=== PATIENT | female | born 1940 | race Caucasian/White ===

== ENCOUNTER 2019-12-27 13:43 | Outpatient (REF) | payer MEDICARE, OTHER, SELFPAY ==
--- NOTE | 2019-12-27 13:51 | MM_ITS ---
EXAMINATION: MM SCREENING DIGITAL MAMMOGRAPHY, BILATERAL CLINICAL INFORMATION: Screening. Asymptomatic. The lifetime risk of breast cancer based on the Tyrer-Cuzick Model is 3%. COMPARISON: Mammography: 12/24/2018, 02/25/2016 TECHNIQUE: Digital mammography is performed in craniocaudal and mediolateral oblique views along with computer-aided detection (CAD). FINDINGS: The breasts are heterogeneously dense, which may obscure small masses (ACR BI-RADS breast composition Category c). There are no significant masses, abnormal calcifications, or other abnormalities. There are scattered bilateral punctate round and some scattered coarse calcifications. The axilla and skin contours are unremarkable. No significant changes. IMPRESSION: No mammographic evidence of malignancy. ASSESSMENT: BI-RADS 1: Negative RECOMMENDATION: Routine annual mammography screening. This patient's information was entered into a reminder system with a target due date for their next mammogram.
== END 2019-12-27 13:44 | disposition home or self-care (01) ==
LOC: HO.MAMMO 13:43
PROVIDERS: PCP Internal Medicine; Visit Provider Internal Medicine
DX: Z12.31 Encounter for screening mammogram for malignant neoplasm of breast (principal)
CPT/HCPCS: 77067

== ENCOUNTER 2020-02-21 18:25 | Inpatient (IN) | payer MEDICARE, OTHER, SELFPAY ==
--- NOTE | 2020-02-21 18:31 | XR_ITS ---
EXAMINATION: XR CHEST CLINICAL INFORMATION: Weakness. COMPARISON: 05/03/2019. TECHNIQUE: Frontal view of the chest was obtained. FINDINGS: Mild kyphotic positioning is suboptimal. The lungs are clear. The heart and mediastinal structures are unremarkable. XR/XR chest 1V IMPRESSION: No acute cardiopulmonary process.
--- NOTE | 2020-02-21 18:31 | ECG_ITS ---
Test Reason : STROKE Blood Pressure : / mmHG Vent. Rate : 066 BPM Atrial Rate : 066 BPM P-R Int : 128 ms QRS Dur : 094 ms QT Int : 430 ms P-R-T Axes : 048 -39 042 degrees QTc Int : 450 ms Normal sinus rhythm Left axis deviation Incomplete right bundle branch block Nonspecific T wave abnormality Abnormal ECG When compared to the previous EKG of No significant changes seen Referred By: Venkat Cook Electronically Signed By:RACHNA GILL MD
--- NOTE | 2020-02-21 18:31 | CT_ITS ---
EXAMINATION: CT HEAD WITHOUT CONTRAST CLINICAL INFORMATION: Stroke. Dementia. COMPARISON: Brain MRI from 05/04/2019. TECHNIQUE: Contiguous axial imaging was performed from the skull base to vertex without intravenous administration of contrast. DLP: 560 mGy-cm FINDINGS: Exam is moderately motion degraded. Within this limitation, there is no evidence of acute intracranial hemorrhage or edematous territorial infarction. Confluent hypoattenuation in the periventricular, deep white matter, and brainstem. Chronic lacunar infarcts of the anterior limb of the right internal capsule. No new loss of trujillo-white matter differentiation. Proportional prominence of the ventricles and sulcal spaces. No evidence for obstructive hydrocephalus. No abnormal mass effect or midline shift. No extra-axial fluid collections. No acute soft tissue or osseous abnormalities. The mastoid air cells and paranasal sinuses are clear. CT/CT head for stroke IMPRESSION: Moderately motion degraded exam. Within this limitation, there is no evidence of acute intracranial hemorrhage or edematous territorial infarction. Extensive underlying microangiopathy. Mild to moderate generalized cerebral volume loss. This critical result was discussed with DENA Lindsey at 19:04 on 02/21/2020 and it was ascertained that the content and urgency of the report was understood at the time of direct communication.
--- NOTE | 2020-02-21 18:41 | PC.NURSE ---
DR SIMON CALLED @ [facility] FERNANDES REQUEST @ 18:41
--- NOTE | 2020-02-21 18:46 | PC.NURSE ---
DR SIMON RETURNS CALL @ THIS TIME 18:46
--- NOTE | 2020-02-21 18:50 | MR_ITS ---
EXAMINATION: MR BRAIN WITHOUT CONTRAST CLINICAL INFORMATION: Right-sided facial droop. COMPARISON: CT/CTA head from 02/21/2020. Brain MRI from 05/04/2019. TECHNIQUE: MRI of the brain was obtained using routine sequences without contrast. FINDINGS: No focal restricted diffusion is demonstrated to suggest acute or subacute cerebral ischemia. No evidence of acute or chronic hemorrhagic products on heme-sensitive imaging. Scattered periventricular, deep white matter, and brainstem T2 FLAIR hyperintensity consistent with moderate underlying microangiopathy. Chronic lacunar infarcts of the anterior limb of the right internal capsule and left yuriy. Proportional prominence of the ventricles and sulcal spaces without evidence of obstructive hydrocephalus. No abnormal mass effect. No midline shift. Normal appearance of the pituitary gland. Normal positioning of the cerebellar tonsils. Normal arterial and venous vascular flow voids are present. Normal, homogeneous marrow signal. Mild mucosal thickening of the paranasal sinuses. Leftward nasal septal deviation. No signal abnormalities within the mastoids. MR/MR head/brain wo con IMPRESSION: 1. No acute intracranial abnormalities. 2. Moderate underlying microangiopathy and generalized cerebral volume loss. Chronic lacunar infarcts of the anterior limb of the right internal capsule and left yuriy.
[2020-02-21 18:57] VITALS: BP 115/86; BP 127/85; PULSE 69; PULSE 83; RESP 18; TEMP 36.8; O2SAT 96; O2SAT 98; BMI 20.6
[2020-02-21 19:31] LABS: Basophils Percent Auto 0.7 % (0-2); Eosinophils Absolute Auto 0.1 X10*3/uL (0.0-0.4); Eosinophils Percent Auto 2.1 % (0-4); Hematocrit 41.9 % (37-47); Hemoglobin 14.1 g/dl (12.0-16.0); Imm Gran Abs Auto 0.01 X10*3/uL (0.00-0.03); Imm Gran Pct Auto 0.2 % (0.0-0.4); Lymphocytes Absolute Auto 1.3 X10*3/uL (1.2-4.9); Lymphocytes Percent Auto 23.8 % (20-40); MANUAL DIFF FLAG NO; Mean Corpuscular HGB Conc 33.7 g/dl (31.0-35.0); Mean Corpuscular Hemoglobin 32.5 pg (27.0-33.0); Mean Corpuscular Volume 96.5 fL (80-98); Mean Platelet Volume 9.6 fL (9.4-12.3); Monocytes Absolute Auto 0.5 X10*3/uL (0.1-1.2); Monocytes Percent Auto 9.6 % (2-11); Neutrophils Absolute Auto 3.6 X10*3/uL (2.0-8.3); Neutrophils Percent Auto 63.6 % (45-73); Platelet Count 295 X10*3/uL (160-400); Red Blood Count 4.34 X10*6/uL (4.20-5.50); Red Cell Distribution Width 11.7 % (11.0-16.0); White Blood Count 5.6 X10*3/uL (4.8-10.8)
--- NOTE | 2020-02-21 19:33 | ED.NEUROSD ---
HPI - Neuro Symptoms/Deficit General Chief Complaint: Stroke Stated Complaint: STROKE ALERT Time Seen by Provider: 02/21/20 18:33 Source: patient, family and EMS Mode of arrival: EMS Limitations: altered mental status History of Present Illness HPI Narrative: 79yoF c PMHx of CVA, atrial fibrillation on Eliquis although noncompliant for the past month last CVA , HTN, HLD presenting via EMS with reports of possible stroke. Per Grand-daughter Mya at 5:30PM patient was fine then at 5:50PM when she called her for dinner she stood up from the chair and fell to the ground brushed her head against the coffee table, not a hard hit, per granddaughter then was complaining of pain to buttocks/hip/ankle and foot and the granddaughter noticed she was pale and clammy was unable to get her up from the floor alone. Told the patient she would be back to get help from her family member's next door then when she arrived she was layying on the floor began to become very confused and tense up then her b/l arms and legs started to shake and they noticed she was more confused than normal and had a worsening Right sided facial droop. Patient has a Health Care Proxy Named Maryanne Yap. Pt is DNR/DNI. On arrival patient is starring in a blank stare not speaking or following any commands. She is going directly yo CT scan at this time for labs and CT scan of brain. Neuro will be consulted. Related Data Home Medications Medication Instructions Recorded Confirmed apixaban [Eliquis] 5 mg PO BID 02/21/20 02/21/20 atorvastatin 40 mg PO DAILY 02/21/20 02/21/20 fluticasone propionate [Flonase 2 spray INTRANASAL DAILY 02/21/20 02/21/20 Allergy Relief] metoprolol succinate 25 mg PO DAILY 02/21/20 02/21/20 Allergies Allergy/AdvReac Type Severity Reaction Status Date / Time bee pollen [Bee Stings] Allergy Intermediate HIVES Verified 02/21/20 19:33 atorvastatin [Lipitor] Allergy Unknown Hives Verified 02/21/20 19:33 bee stings Allergy Unknown Hives Uncoded 02/21/20 19:33 Review of Systems Review of Systems: Yes Unobtainable due to mental status PMFSH Social History Social History Alcohol intake: unknown Smoking Status: Unknown if ever smoked Use of substances other than those prescribed or required for medical reasons: No Advance Directives: No Advance Directives Information Provided: Yes Physical Exam Vital Signs: Vital Signs: Last Vital Signs Temp 98.2 F 02/21/20 20:00 Pulse 95 02/21/20 22:00 Resp 18 02/21/20 22:00 BP 141/98 H 02/21/20 22:00 Pulse Ox 98 02/21/20 22:00 Body Mass Index 20.6 Vital signs have been reviewed as normal and appeared to be correct. Blood pressure normal. Heart rate normal. Respiration rate normal. Temperature normal. Oxygen saturation normal. Appearance: Alert, Confused. No acute distress. Head: Normal external exam. Normocephalic. Atraumatic. Able to rotate head bilaterally. Eyes: PERRLA. EOMI. No nystagmus noted. Conjunctiva and sclera normal. Eyelids normal. Corneal reflex normal. ENT: EAC normal. TM's Normal. Hearing normal. Pharynx normal. Uvula midline. tongue midline. Moist mucous membranes. No trismus noted. No drooling noted. Neck: Normal inspection. Neck supple. FROM. No adenopathy. No meningeal signs. CVS: Normal heart rate and rhythm. Heart sound normal. No murmurs noted. Pulses normal throughout. Respiratory: No respiratory distress. Painless inspiration. Breath sounds normal. No wheezes/rales/rhonchi noted. Chest nontender. No accessory muscle usage noted or decreased air movement noted. Abdomen: Soft and nontender. Bowel sounds normal in all 4 quadrants. No distention noted. No organomegaly noted. No visible injury noted. Back: Full range of motion noted. Skin: Skin warm and dry. Normal skin color. Normal skin turgor. No rashes/lesions/lacerations noted. Extremities: No lower extremity edema. Extremities exhibit normal range of motion. Extremities nontender. Able to shrug shoulders bilaterally and keep up against resistance. Neuro: Confused. Patient is staring around not speaking or following any commands. Noted to have Right sided facial droop. When I raised her arms over her head she slowly lowers them. No motor deficit. No sensory deficit. Reflexes normal. Moving all extremities. No focal motor deficits. Cranial nerves II-XI intact bilaterally. No tremor noted. No rigidity noted. Course Course Course Narrative: 18:33pm - 79yoF c PMHx of CVA, atrial fibrillation on Eliquis although noncompliant for the past month last CVA , HTN, HLD presenting via EMS with reports of possible stroke last known well time 5:30PM Noncompliant for her Eliquis for the past month witnessed by her granddaughter. - On arrival pt is staring around with a right sided facial droop although appears to be moving her extremities. No focal neuro deficitis. Does not respond to questions or commands. Vitals are WNL. - Patient will go straight to CT scan of brain and labs/ekg STROKE protocol. NIH SS score 11. Consulted with Dr. Ramon at this time to evaluate for possible indication for tPA Although this could possibly be a seizure therefore will consult and possibly obtain a stat MRI then re-evaluate. Reevaluation(s) Reevaluation #1: - Patient's CT scan started to speak and continue to move all extremities her facial droop to the right side improved. Was able to have CT scan no acute or intracranial processes noted. Therefore due to unknown if this was a possible seizure versus the CVA will obtain a MRI stat we evaluate for possible tPA at that point. NIHSS score at this time 2 only with Right sided facial droop and confused at this time. Time: 19:00 Reevaluation #2: labs within normal limits. MRI negative for any acute intracranial abnormalities only revealed chronic changes. Therefore patient most likely seizure. Will plan to admit at this time. Time: 20:54 Procedures Orthopedic Splinting/Casting Injury #1: Side: right Lower Extremity Injury Location: ankle Lower Extremity Immobilizer: posterior splint MDM - Neuro Symptoms/Deficit Medical Records Attestation: I reviewed the patient's medical records. Lab Data Attestation: I reviewed the patient's lab results. Result diagrams: 02/21/20 19:25 02/21/20 19:25 Labs: Lab Results 02/21/20 02/21/20 02/21/20 Range/Units 19:25 19: 19:26 WBC 5.6 (4.8-10.8) X10*3/uL RBC 4.34 (4.20-5.50) X10*6/uL Hgb 14.1 (12.0-16.0) g/dl Hct 41.9 (37-47) % MCV 96.5 (80-98) fL MCH 32.5 (27.0-33.0) pg MCHC 33.7 (31.0-35.0) g/dl RDW 11.7 (11.0-16.0) % Plt Count 295 (160-400) X10*3/uL MPV 9.6 (9.4-12.3) fL Immature Gran % (Auto) 0.2 (0.0-0.4) % Neut % (Auto) 63.6 (45-73) % Lymph % (Auto) 23.8 (20-40) % [place] % (Auto) 9.6 (2-11) % Eos % (Auto) 2.1 (0-4) % Baso % (Auto) 0.7 (0-2) % Lymph # (Auto) 1.3 (1.2-4.9) X10*3/uL [place] # (Auto) 0.5 (0.1-1.2) X10*3/uL Eos # (Auto) 0.1 (0.0-0.4) X10*3/uL Baso # (Auto) 0.0 (0.0-0.2) X10*3/uL Abs Immat Gran (auto) 0.01 (0.00-0.03) X10*3/uL Absolute Neuts (auto) 3.6 (2.0-8.3) X10*3/uL Absolute Nucleated RBC 0.000 (0.0-0.012) X10*3/uL Nucleated RBC % (auto) 0.0 (0.0-0.2) /100WBC PT 11.8 (10.8-13.0) SEC INR 1.0 (0.9-1.1) APTT 29.4 (24.1-38.0) SEC Sodium 136 (135-145) mmol/L Potassium 3.7 (3.3-5.1) mmol/l Chloride 100 (96-108) mmol/L Carbon Dioxide 26 (22-29) mmol/L Anion Gap 14 (12-20) BUN 9 (9-16) mg/dL Creatinine 0.75 (0.5-1.4) mg/dL Estim Creat Clear Calc 57.4 Estimated GFR > 60 Random Glucose 111 (60-115) mg/dL Calcium 9.3 (8.4-10.2) mg/dL Magnesium 2.2 (1.6-2.6) mg/dL Total Bilirubin 0.8 (0.0-1.0) mg/dL Direct Bilirubin 0.3 (0.0-0.5) mg/dL AST 24 (5-31) U/L ALT 25 (0-31) U/L Alkaline Phosphatase 78 (39-117) U/L Total Creatine Kinase 20 L (26-140) U/L Troponin I High Sens (<3.5-17.0) ng/L Total Protein 6.6 (6.5-8.0) g/dL Albumin 4.1 (3.5-5.0) g/dL 02/21/20 Range/Units 19:26 WBC (4.8-10.8) X10*3/uL RBC (4.20-5.50) X10*6/uL Hgb (12.0-16.0) g/dl Hct (37-47) % MCV (80-98) fL MCH (27.0-33.0) pg MCHC (31.0-35.0) g/dl RDW (11.0-16.0) % Plt Count (160-400) X10*3/uL MPV (9.4-12.3) fL Immature Gran % (Auto) (0.0-0.4) % Neut % (Auto) (45-73) % Lymph % (Auto) (20-40) % [place] % (Auto) (2-11) % Eos % (Auto) (0-4) % Baso % (Auto) (0-2) % Lymph # (Auto) (1.2-4.9) X10*3/uL [place] # (Auto) (0.1-1.2) X10*3/uL Eos # (Auto) (0.0-0.4) X10*3/uL Baso # (Auto) (0.0-0.2) X10*3/uL Abs Immat Gran (auto) (0.00-0.03) X10*3/uL Absolute Neuts (auto) (2.0-8.3) X10*3/uL Absolute Nucleated RBC (0.0-0.012) X10*3/uL Nucleated RBC % (auto) (0.0-0.2) /100WBC PT (10.8-13.0) SEC INR (0.9-1.1) APTT (24.1-38.0) SEC Sodium (135-145) mmol/L Potassium (3.3-5.1) mmol/l Chloride (96-108) mmol/L Carbon Dioxide (22-29) mmol/L Anion Gap (12-20) BUN (9-16) mg/dL Creatinine (0.5-1.4) mg/dL Estim Creat Clear Calc Estimated GFR Random Glucose (60-115) mg/dL Calcium (8.4-10.2) mg/dL Magnesium (1.6-2.6) mg/dL Total Bilirubin (0.0-1.0) mg/dL Direct Bilirubin (0.0-0.5) mg/dL AST (5-31) U/L ALT (0-31) U/L Alkaline Phosphatase (39-117) U/L Total Creatine Kinase (26-140) U/L Troponin I High Sens < 3.5 (<3.5-17.0) ng/L Total Protein (6.5-8.0) g/dL Albumin (3.5-5.0) g/dL Imaging Data MRI of brain without contrast: Attestation: I personally reviewed and interpreted this imaging study as follows: Radiologist's impression: IMPRESSION: 1. No acute intracranial abnormalities. 2. Moderate underlying microangiopathy and generalized cerebral volume loss. Chronic lacunar infarcts of the anterior limb of the right internal capsule and left yuriy. ct scan of brain: Attestation: I personally reviewed and interpreted this imaging study as follows: Radiologist's impression: IMPRESSION: Moderately motion degraded exam. Within this limitation, there is no evidence of acute intracranial hemorrhage or edematous territorial infarction. Extensive underlying microangiopathy. Mild to moderate generalized cerebral volume loss. This critical result was discussed with DENA Lindsey at 19:04 on 02/21/2020 and it was ascertained that the content and urgency of the report was understood at the time of direct communication. Chest x-ray: Attestation: I personally reviewed and interpreted this imaging study as follows: Radiologist's impression: IMPRESSION: No acute cardiopulmonary process. right ankle/ foot x-ray: Attestation: I personally reviewed and interpreted this imaging study as follows: Radiologist's impression: IMPRESSION: 1. Acute, nondisplaced transverse fracture of the lateral malleolus with adjacent moderate soft tissue swelling. 2. Probable degenerative calcification adjacent to the medial malleolus. ECG Data Attestation: I personally reviewed and interpreted this ECG as follows: ECG interpretation date: 02/21/20 ECG interpretation time: 19:05 Interpretation: Normal sinus rhythm with left axis deviation with incomplete right bundle branch block and nonspecific T-wave abnormalities. No acute ischemic changes noted. Similar compared to prior 05/03/2019. NIH Stroke Scale Internal: Initial- Upon Arrival Time: 18:33 Level of Consciousness: Alert Level of Consciousness Questions: Answers neither question correctly Level of Consciousness Commands: Performs neither task correctly Best Gaze: Normal Visual: No visual loss Facial Palsy: Partial paralysis Motor Arm (Right): No drift Motor Arm (Left): No drift Motor Leg (Right): No drift Motor Leg (Left): No drift Limb Ataxia: Absent Sensory: Normal Best Language: Mute, global aphasia Dysarthia: Severe dysarthria (patient just staring not responding to questions ) Extinction and Inattention: No abnormality Score: 11 Critical Care Time Critical Care Time Critical Care Time: Yes Total Critical Care Time: 60 Attestation: I personally attest to this time spent taking care of the patient Discharge Plan Discharge Clinical Impression: Seizure, Fall, Ankle fracture, lateral malleolus, closed Patient Disposition: Admitted As Inpatient
[2020-02-21] MEDS: LORazepam 2 MG/ML VIAL 1 MG IVPUSH (19:34)
[2020-02-21 19:39] LABS: Prothrombin Time 11.8 SEC (10.8-13.0)
[2020-02-21 19:42] LABS: Partial Thromboplastin Time 29.4 SEC (24.1-38.0)
[2020-02-21 19:45] LABS: Stroke Lab Use COMPLETE
[2020-02-21 19:51] LABS: Alanine Aminotransferase 25 U/L (0-31); Albumin Level 4.1 g/dL (3.5-5.0); Alkaline Phosphatase 78 U/L (39-117); Anion Gap 14 (12-20); Aspartate Amino Transferase 24 U/L (5-31); Bilirubin Direct 0.3 mg/dL (0.0-0.5); Bilirubin Total 0.8 mg/dL (0.0-1.0); Blood Urea Nitrogen 9 mg/dL (9-16); Calcium 9.3 mg/dL (8.4-10.2); Carbon Dioxide 26 mmol/L (22-29); Chloride 100 mmol/L (96-108); Creatinine Clr Calc Pharmacy 57.4; Estimated Glomerular Filt Rate > 60; Glucose Random 111 mg/dL (60-115); Magnesium 2.2 mg/dL (1.6-2.6); Potassium 3.7 mmol/l (3.3-5.1); Sodium 136 mmol/L (135-145); Total Protein 6.6 g/dL (6.5-8.0)
[2020-02-21 19:57] LABS: Troponin-I High Sensitivity < 3.5 ng/L (<3.5-17.0)
[2020-02-21 20:00] VITALS: BP 149/79; PULSE 75; RESP 11; TEMP 36.8; O2SAT 98
[2020-02-21 22:00] VITALS: BP 141/98; PULSE 95; RESP 18; O2SAT 98
--- NOTE | 2020-02-21 22:39 | XR_ITS ---
EXAMINATION: XR ANKLE, RIGHT CLINICAL INFORMATION: Right ankle pain and swelling. COMPARISON: None TECHNIQUE: AP, lateral, and mortise views of the right ankle. FINDINGS: Moderate asymmetric swelling is seen laterally. A nondisplaced transverse fracture of the lateral malleolus is seen. A small corticated elongated density seen along the inferomedial aspect of the medial malleolus without adjacent soft tissue swelling. XR/XR ankle RT min 3V IMPRESSION: 1. Acute, nondisplaced transverse fracture of the lateral malleolus with adjacent moderate soft tissue swelling. 2. Probable degenerative calcification adjacent to the medial malleolus.
--- NOTE | 2020-02-21 22:39 | XR_ITS ---
EXAMINATION: XR FOOT, RIGHT CLINICAL INFORMATION: Right foot pain status post fall. COMPARISON: None TECHNIQUE: AP, lateral, and oblique views of the right foot. FINDINGS: There is a hallux valgus deformity. No acute fracture or dislocation is seen. The joint spaces are unremarkable. The soft tissues are unremarkable. XR/XR foot RT min 3V IMPRESSION: Hallux valgus deformity without acute right foot abnormality.
--- NOTE | 2020-02-21 23:08 | P.HPHOSP_ITS ---
History of Present Illness Date of Service: 02/21/20 Chief Complaint: suspected seizure 79 y/o female with PMHx of HTN, HLP, Afib and stroke who presented from home after fall due to suspected seizure. Per history provided by patient, she reported that today around 3 pm while walking believes she tripped and fell on the floor but denies loosing conciusness in the act or hitting her head. Per ED, reports that family member stated that patient after fall started shaking and brought the patient to the ED for a concern of a possible stroke given her previous hx. It is unclear the circumstances of the event at present but it is noted that patient has underlying dementia, is able to answer questions and fol low commands but unable to specify her age at present. In 2018 patient had a suspected episode of stroke and was evaluated by neuro. On that time planned was to start patient on lamotrigine but was never done so. On april this year patient had a left ischemic pontine stroke due to noncompliance with her eliquis. On presentation to the ED patient was noted to have a NIH scale of 0, no evidence of any motor or sensory deficit. BP stable, no evidence of fever. Blood work unremarkable at present. Decision for admission given. Patient seen and examined at the bedside, laying down in bed in no acute distress. ROS as above otherwise negative. Physical exam unremarkable. PMHX: HTN, HLP, Afib on eliquis, Stroke PSx: unknown Toxic habits: No hx of alcohol abuse, smoking or IVDA Review of Systems Review of Systems: Yes Other (fall) Neurologic: Reports seizure-like activity PMFSH Functional capacity: independent ambulation Social History Alcohol intake: unknown Smoking Status: Unknown if ever smoked Use of substances other than those prescribed or required for medical reasons: No Advance Directives: No Advance Directives Information Provided: Yes Meds Allergies Allergy/AdvReac Type Severity Reaction Status Date / Time bee pollen [Bee Stings] Allergy Intermediate HIVES Verified 02/21/20 19:33 atorvastatin [Lipitor] Allergy Unknown Hives Verified 02/21/20 19:33 bee stings Allergy Unknown Hives Uncoded 02/21/20 19:33 Home Medications Medication Instructions Recorded Confirmed Type apixaban [Eliquis] 5 mg PO BID 02/21/20 02/21/20 History atorvastatin 40 mg PO DAILY 02/21/20 02/21/20 History fluticasone propionate [Flonase 2 spray INTRANASAL DAILY 02/21/20 02/21/20 History Allergy Relief] metoprolol succinate 25 mg PO DAILY 02/21/20 02/21/20 History Physical Exam Vital Signs and Narrative: Vital Signs: Last Vital Signs Temp 98.2 F 02/21/20 20:00 Pulse 95 02/21/20 22:00 Resp 18 02/21/20 22:00 BP 141/98 H 02/21/20 22:00 Pulse Ox 98 02/21/20 22:00 Body Mass Index 20.6 Const: General: cooperative, comfortable and no acute distress Orientation/consciousness: oriented to person and oriented to place HENMT: Head: Yes normal to inspection Eyes: General: appearance normal, both eyes and all related structures Neck: Yes normal visual inspection Chest: Chest palpation & inspection: normal inspection of the chest Resp: Effort & Inspection: normal respiratory effort Auscultation: clear to auscultation bilaterally Cardio: Jugular venous distension: no JVD Rate: regular rate Rhythm: regular rhythm Heart sounds: S1 normal heart sound present and S2 normal heart sound present GI: Inspection: Yes normal to inspection Skin: General skin exam: no rashes or lesions noted Neuro: General: oriented to person and oriented to place Extrem: General: Yes normal to inspection Results Labs CBC and Chem 7: 02/21/20 19:25 02/21/20 19:25 Labs: Laboratory Results - last 24 hr 02/21/20 02/21/20 02/21/20 19:25 19:25 19:26 MCV 96.5 MCH 32.5 MCHC 33.7 RDW 11.7 Plt Count 295 MPV 9.6 Immature Gran % (Auto) 0.2 Neut % (Auto) 63.6 Lymph % (Auto) 23.8 [place] % (Auto) 9.6 Eos % (Auto) 2.1 Baso % (Auto) 0.7 Lymph # (Auto) 1.3 [place] # (Auto) 0.5 Eos # (Auto) 0.1 Baso # (Auto) 0.0 Abs Immat Gran (auto) 0.01 Absolute Neuts (auto) 3.6 Absolute Nucleated RBC 0.000 Nucleated RBC % (auto) 0.0 PT 11.8 INR 1.0 APTT 29.4 Anion Gap 14 Estim Creat Clear Calc 57.4 Estimated GFR > 60 Random Glucose 111 Calcium 9.3 Magnesium 2.2 Total Bilirubin 0.8 Direct Bilirubin 0.3 AST 24 ALT 25 Alkaline Phosphatase 78 Total Creatine Kinase 20 L Troponin I High Sens Total Protein 6.6 Albumin 4.1 02/21/20 19:26 MCV MCH MCHC RDW Plt Count MPV Immature Gran % (Auto) Neut % (Auto) Lymph % (Auto) [place] % (Auto) Eos % (Auto) Baso % (Auto) Lymph # (Auto) [place] # (Auto) Eos # (Auto) Baso # (Auto) Abs Immat Gran (auto) Absolute Neuts (auto) Absolute Nucleated RBC Nucleated RBC % (auto) PT INR APTT Anion Gap Estim Creat Clear Calc Estimated GFR Random Glucose Calcium Magnesium Total Bilirubin Direct Bilirubin AST ALT Alkaline Phosphatase Total Creatine Kinase Troponin I High Sens < 3.5 Total Protein Albumin Imaging Radiologist's Impressions: Impressions Chest X-Ray 02/21/20 18:31 IMPRESSION: No acute cardiopulmonary process. Head CT 02/21/20 18:31 IMPRESSION: Moderately motion degraded exam. Within this limitation, there is no evidence of acute intracranial hemorrhage or edematous territorial infarction. Extensive underlying microangiopathy. Mild to moderate generalized cerebral volume loss. This critical result was discussed with DENA Lindsey at 19:04 on 02/21/2020 and it was ascertained that the content and urgency of the report was understood at the time of direct communication. Brain MRI 02/21/20 18:50 IMPRESSION: 1. No acute intracranial abnormalities. 2. Moderate underlying microangiopathy and generalized cerebral volume loss. Chronic lacunar infarcts of the anterior limb of the right internal capsule and left yuriy. Ankle X-Ray 02/21/20 22:39 IMPRESSION: 1. Acute, nondisplaced transverse fracture of the lateral malleolus with adjacent moderate soft tissue swelling. 2. Probable degenerative calcification adjacent to the medial malleolus. Foot X-Ray 02/21/20 22:39 IMPRESSION: Hallux valgus deformity without acute right foot abnormality. Assessment and Plan (1) Fall: Status: Acute event unclear. No evidence of any intracranial pathology on CT Per family a seizure is suspected as the cause of the fall (2) Seizure: Status: Acute columnist EEG [facility] Neurochecks Neurology consult in the am for evaluation (3) Hypertension: Status: Acute continue with home BP meds (4) Hyperlipidemia: Status: Acute continue with statin home dise (5) Atrial fibrillation: Status: Acute continue with eliquis home dose
[2020-02-21 23:48] VITALS: BP 162/109; PULSE 89; RESP 17; TEMP 36.7; O2SAT 98
[2020-02-21 23:59] LABS: Glucose, Whole Blood 105 mg/dL (60-115)
[2020-02-22] VITALS (8 sets, daily range): BP systolic 134–164; BP diastolic 68–92; PULSE 79–133; RESP 12–18; TEMP 36.2–37.2; O2SAT 94–98
--- NOTE | 2020-02-22 00:03 | EEG_ITS ---
This is a 16-channel EEG with an EKG lead. The patient is reported awake and restless during the tracing. Background EEG rhythm was almost continuously contaminated by muscle artifacts and movement artifacts. At times, it was somewhat clearly seen and was low amplitude fast. Otherwise, no definite abnormality was noted. Photic stimulation and hyperventilation were not performed as the patient was not cooperative. IMPRESSION: Limited EEG, but it did not reveal any obvious abnormality. MD VELIA Castillo/MARK / [id number]
--- NOTE | 2020-02-22 00:37 | PC.NURSE ---
THIS PCT APPLIED A SHORT LEG SPLINT,PT TOLERATED PROCDURE WELL. DENA BATES CHECKED PLACMENT ,NO ISSUES. PT IS RESTING COMFORTABLY AT THIS TIME.
[2020-02-22 00:55] LABS: COVID-19 Test Negative (Negative)
--- NOTE | 2020-02-22 02:51 | PC.NURSE ---
Addendum entered by Steph Butcher 02/22/20 02:53: Patient's ankle was splinted and patient took off the splint. Patient is oriented to person, place and time. Splint to be applied prior to admission/transport to the floor as well as new iv to be placed before patient transported to floor in the morning. Original Note: Patient pulled out both of her IV's despite them being wrapped. Charge nurse aware.
--- NOTE | 2020-02-22 06:34 | PC.NURSE ---
Patient needs a new iv placed prior to going to floor
[2020-02-22 06:42] LABS: MANUAL DIFF FLAG NO
[2020-02-22 06:47] LABS: Basophils Absolute Auto 0.1 X10*3/uL (0.0-0.2); Basophils Percent Auto 0.6 % (0-2); Eosinophils Absolute Auto 0.1 X10*3/uL (0.0-0.4); Eosinophils Percent Auto 0.8 % (0-4); Hematocrit 40.8 % (37-47); Imm Gran Abs Auto 0.05 X10*3/uL (0.00-0.03); Imm Gran Pct Auto 0.6 % (0.0-0.4); Lymphocytes Absolute Auto 1.3 X10*3/uL (1.2-4.9); Lymphocytes Percent Auto 14.2 % (20-40); Mean Corpuscular HGB Conc 34.3 g/dl (31.0-35.0); Mean Corpuscular Hemoglobin 32.3 pg (27.0-33.0); Mean Platelet Volume 9.6 fL (9.4-12.3); Monocytes Absolute Auto 0.9 X10*3/uL (0.1-1.2); Monocytes Percent Auto 10.2 % (2-11); Neutrophils Absolute Auto 6.6 X10*3/uL (2.0-8.3); Neutrophils Percent Auto 73.6 % (45-73); Platelet Count 282 X10*3/uL (160-400); Red Blood Count 4.34 X10*6/uL (4.20-5.50); Red Cell Distribution Width 11.5 % (11.0-16.0); White Blood Count 8.9 X10*3/uL (4.8-10.8)
--- NOTE | 2020-02-22 06:51 | PC.NURSE ---
Patient has a fractured ankle and is unable to ambulate at this point
[2020-02-22 07:11] LABS: Anion Gap 14 (12-20); Blood Urea Nitrogen 7 mg/dL (9-16); Calcium 9.1 mg/dL (8.4-10.2); Carbon Dioxide 24 mmol/L (22-29); Chloride 100 mmol/L (96-108); Creatinine Clr Calc Pharmacy 72.9; Estimated Glomerular Filt Rate > 60; Glucose Random 109 mg/dL (60-115); Potassium 3.5 mmol/l (3.3-5.1); Sodium 134 mmol/L (135-145)
--- NOTE | 2020-02-22 07:24 | PC.NURSE ---
report taken from selvin rn pt a&ox4, nad. awaiting transport to [facility] [place] for inpt admission r/t possible seizure c r ankle fracture. iv replaced by previous shift rn and reinforced w jose savage d/t pt tendency to play w iv site. pt educated about need for iv to stay intact for inpt admission. [facility] call for report to [facility] unsuccessful, unit sts they are unaware about bed assignment and will call back when ready.
[2020-02-22] MEDS: 0.9 % Sodium Chloride Flush 3 ML SYRINGE IVFLUSH ×2 (07:37→16:39)
--- NOTE | 2020-02-22 08:07 | PC.NURSE ---
report given to [facility] glynn wagner
[2020-02-22 08:25] LABS: Glucose, Whole Blood 108 mg/dL (60-115)
[2020-02-22 08:25] LABS: Prothrombin Time Whole Bld POC 11.9 sec (11.1-13.5)
--- NOTE | 2020-02-22 09:50 | P.CNNE_ITS ---
History of Present Illness Data of Consult Service Date: 02/22/20 Primary Care Provider: Xander Vázquez MD 79 years old woman who came to hospital after she fell down at home. In emergency room she was evaluated for acute stroke but history suggested that she fell down and had a generalized seizure type of episode. In emergency room she had right-sided facial weakness and difficulty speaking. It was decided to not treat her with intravenous tPA type medicine because of possible explanation being a seizure. This morning she was doing okay stating that she did not have any symptoms any more. She did not have any previous history of seizures. Review of Systems Review of Systems: No recent trauma exposure to new medicine or cold or flu- like illness. Neurologic: Reports seizure-like activity PMF Past Medical History Functional capacity: independent ambulation Social History Social History Alcohol intake: unknown Smoking Status: Unknown if ever smoked Use of substances other than those prescribed or required for medical reasons: No Advance Directives: No Advance Directives Information Provided: Yes Do you have thoughts of harming others: None Meds Allergies Allergy/AdvReac Type Severity Reaction Status Date / Time bee pollen [Bee Stings] Allergy Intermediate HIVES Verified 02/21/20 19:33 atorvastatin [Lipitor] Allergy Unknown Hives Verified 02/21/20 19:33 bee stings Allergy Unknown Hives Uncoded 02/21/20 19:33 Home Medications Medication Instructions Recorded Confirmed Type apixaban [Eliquis] 5 mg PO BID 02/21/20 02/21/20 History atorvastatin 40 mg PO DAILY 02/21/20 02/21/20 History fluticasone propionate [Flonase 2 spray INTRANASAL DAILY 02/21/20 02/21/20 History Allergy Relief] metoprolol succinate 25 mg PO DAILY 02/21/20 02/21/20 History Physical Exam Vital Signs: Vital Signs: Last Vital Signs Temp 98.1 F 02/22/20 08:00 Pulse 101 H 02/22/20 08:00 Resp 18 02/22/20 08:00 BP 139/68 02/22/20 08:00 Pulse Ox 97 02/22/20 08:00 Body Mass Index 20.6 She was alert and awake with normal spontaneity of speech fluency comprehension and affect. Pupils were equal and reactive to light. Face was symmetrical. There was no obvious arm or leg weakness. Deep tendon reflexes were trace to absent with flexor plantars. Results Labs CBC & Chem 7: 02/22/20 06:38 02/22/20 06:38 Labs: Short CBC 02/21/20 02/22/20 Range/Units 19:25 06:38 WBC 5.6 8.9 (4.8-10.8) X10*3/uL Hgb 14.1 14.0 (12.0-16.0) g/dl Hct 41.9 40.8 (37-47) % Plt Count 295 282 (160-400) X10*3/uL BMP 02/21/20 02/22/20 19:25 06:38 Sodium 136 134 L Potassium 3.7 3.5 Chloride 100 100 Carbon Dioxide 26 24 BUN 9 7 L Creatinine 0.75 0.59 Calcium 9.3 9.1 Cardiac Enzymes 02/21/20 Range/Units 19:25 Total Creatine Kinase 20 L (26-140) U/L Liver Function 02/21/20 Range/Units 19:25 Total Bilirubin 0.8 (0.0-1.0) mg/dL Direct Bilirubin 0.3 (0.0-0.5) mg/dL AST 24 (5-31) U/L ALT 25 (0-31) U/L Alkaline Phosphatase 78 (39-117) U/L Albumin 4.1 (3.5-5.0) g/dL Noncontrast CT scan and MRI of brain did not reveal any acute lesion. Chronic microvascular ischemic changes were noted. Assessment and Plan (1) Seizure: Status: Acute 79 years old woman with significant chronic ischemic vascular disease of brain presented with an episode of generalized shaking and in emergency room was noted to have right-sided facial weakness and difficulty speaking. Her imaging did not reveal any acute lesion. Possible explanation was a seizure. Recommendations: I would start her on levetiracetam 250 mg twice a day and arrange an EEG, which can be done as an outpatient if not today.
[2020-02-22] MEDS: Atorvastatin Calcium 40 MG TABLET PO (09:53)
[2020-02-22] MEDS: Apixaban 5 MG TABLET PO ×2 (09:53→20:23)
[2020-02-22] MEDS: Metoprolol Succinate ER 25 MG TAB.ER.24H PO (09:53)
--- NOTE | 2020-02-22 11:58 | MHC.CM.PN ---
CM met with patient at the bedside who reports she is independent and lives with her . Patient does have a HCP, dtr Maryanne [phone] and a copy is on file. Discussed discharge plan, home no services. Jose C will provide transportation. CM will continue to follow patient roque discharge needs.
--- NOTE | 2020-02-22 14:38 | PC.NURSE ---
1300 PLACED ON CIWA FOR ETOH USE.
[2020-02-22] MEDS: LORazepam 2 MG/ML VIAL 0.5 MG IVPUSH (15:14)
--- NOTE | 2020-02-22 16:21 | HO.PM.IMPN ---
Subjective Subjective Date of Service: 02/22/20 Interval History: seen and examined this AM was lucid and able to recall the events of yesterday as the day progressed, she became very delirious and was unable to sit still for the EEG d/w the patients granddaughter (Mya, whom she lives with) about the events that transpired yesterday. no definitive tonic/clonic movements were seen. no bowel/bladder loss or foaming at the mouth. she reports her grandmother is an alcoholic and drinks at least 1 bottle of wine daily. Her last drink was 02/21/2020, probably around 5pm. She reports that her grandmother has not had previous withdrawal symptoms. Physical Exam Vital Signs: Vital Signs: Last Vital Signs Temp 97.2 F 02/22/20 15: Pulse 120 H 02/22/20 15:22 Resp 18 02/22/20 15:22 BP 164/84 H 02/22/20 15:22 Pulse Ox 94 02/22/20 15:22 Body Mass Index 20.6 Const: Other: General - no acute distress, appears comfortable Cardiovascular - regular rate and rhythm, S1-S2 Lungs - normal respiratory effort, clear to auscultation bilaterally, no wheezing Abdomen - soft, nontender, no rebound or guarding Extremities - no edema bilaterally Neuro - awake and alert, oriented x3; in the afternoon disoriented to place/location Objective Data Current Medications Generic Name Dose Route Start Last Admin Trade Name Freq PRN Reason Stop Dose Admin Apixaban 5 mg 02/22/20 09:00 02/22/20 09:53 Apixaban 5 Mg Tablet PO 5 mg BID ADRIANA Administration Atorvastatin Calcium 40 mg 02/22/20 09:00 02/22/20 09:53 Atorvastatin Calcium 40 Mg Tablet PO 40 mg DAILY ADRIANA Administration Fluticasone Propionate 2 spray 02/22/20 09:00 02/22/20 15:20 Fluticasone Propionate Nasal 16 Gm [place] NOSTRIL-B Not Given DAILY ADRIANA Metoprolol Succinate 25 mg 02/22/20 09:00 02/22/20 09:53 Metoprolol Succinate Er 25 Mg Tab.Er.24h PO 25 mg DAILY ADRIANA Administration Protocol Pharmacy Consult 1 each 02/21/20 21:19 Consult Rx Perform Med Rec MISCELLANE ONCE PRN Consult order Sodium Chloride 3 ml 02/22/20 00:03 02/22/20 07:37 0.9 % Sodium Chloride Flush 3 Ml Syringe IVFLUSH 3 ml QSHIFT ADRIANA Administration Labs CBC & Chem 7: 02/22/20 06:38 02/22/20 06:38 Assessment and Plan (1) Atrial fibrillation: Status: Acute Assessment and Plan: This is a 79 yo F who presented to the hospital with neurological issues which were felt to be secondary to a stroke vs. seizures. Her MRI completed showed no acute CVA. 1. Toxic/Metabolic Encephalopathy ? hospital delirium / sun-downing redirect as much as possible discussed with neurology regarding starting anti- Epileptics. Given patient's history of alcohol abuse which was found out this afternoon, we decided to not start her keppra. 2. Alcohol abuse with high risk for withdrawal given IV ativan in the ED and on the floor today with good effect will start phenobarb. per protocol monitor lytes mvi/thiamin/folate 3. A. Fib with RVR worsened due to agitation, improved after ativan continue po BB for the time being, hold off on IV drips continue eliquis continue other care DNR/DNI -- informed by the patients granddaughter DVT pptx, Neri
[2020-02-22] MEDS: LORazepam 2 MG/ML VIAL 1 MG IVPUSH (16:39)
[2020-02-22] MEDS: PHENobarbitaL sodium 130 MG/ML VIAL 139 MG IM (19:10)
[2020-02-22] MEDS: PHENobarbitaL sodium 130 MG/ML VIAL 104 MG IM (22:23)
[2020-02-23] VITALS (7 sets, daily range): BP systolic 113–127; BP diastolic 59–73; PULSE 69–100; RESP 14–20; TEMP 35.7–37.1; O2SAT 94–98
[2020-02-23] MEDS: 0.9 % Sodium Chloride Flush 3 ML SYRINGE IVFLUSH ×3 (00:29→15:40)
[2020-02-23] MEDS: PHENobarbitaL sodium 130 MG/ML VIAL 104 MG IM (01:05)
[2020-02-23 06:25] LABS: Hemoglobin 13.1 g/dl (12.0-16.0); Mean Corpuscular HGB Conc 33.6 g/dl (31.0-35.0); Mean Corpuscular Hemoglobin 31.9 pg (27.0-33.0); Mean Corpuscular Volume 94.9 fL (80-98); Platelet Count 276 X10*3/uL (160-400); Red Blood Count 4.11 X10*6/uL (4.20-5.50); Red Cell Distribution Width 11.6 % (11.0-16.0); White Blood Count 8.2 X10*3/uL (4.8-10.8)
[2020-02-23 06:53] LABS: Anion Gap 13 (12-20); Blood Urea Nitrogen 13 mg/dL (9-16); Calcium 8.8 mg/dL (8.4-10.2); Carbon Dioxide 24 mmol/L (22-29); Chloride 100 mmol/L (96-108); Creatinine Clr Calc Pharmacy 69.4; Estimated Glomerular Filt Rate > 60; Glucose Random 108 mg/dL (60-115); Magnesium 2.2 mg/dL (1.6-2.6); Potassium 3.6 mmol/l (3.3-5.1); Sodium 133 mmol/L (135-145)
[2020-02-23] MEDS: PHENobarbitaL 15 MG TABLET 45 MG PO ×2 (08:49→20:17)
[2020-02-23] MEDS: Atorvastatin Calcium 40 MG TABLET PO (08:50)
[2020-02-23] MEDS: Thiamine HCL 100 MG TABLET PO (08:50)
[2020-02-23] MEDS: Metoprolol Succinate ER 25 MG TAB.ER.24H PO (08:50)
[2020-02-23] MEDS: Apixaban 5 MG TABLET PO ×2 (08:50→20:17)
[2020-02-23] MEDS: Folic Acid 1 MG TABLET PO (08:50)
[2020-02-23] MEDS: Multivitamin TABLET 1 TAB PO (08:50)
--- NOTE | 2020-02-23 18:25 | HO.PM.IMPN ---
Subjective Subjective Date of Service: 02/23/20 Interval History: seen and examined this AM more lucid today but sleepy . Physical Exam Vital Signs: Vital Signs: Last Vital Signs Temp 97.8 F 02/23/20 15:26 Pulse 100 02/23/20 15:26 Resp 20 02/23/20 15:26 BP 113/73 02/23/20 15:26 Pulse Ox 95 02/23/20 15:26 Body Mass Index 20.6 Const: Other: General - no acute distress, appears comfortable Cardiovascular - regular rate and rhythm, S1-S2 Lungs - normal respiratory effort, clear to auscultation bilaterally, no wheezing Abdomen - soft, nontender, no rebound or guarding Extremities - no edema bilaterally Neuro - awake and alert, oriented to place Objective Data Current Medications Generic Name Dose Route Start Last Admin Trade Name Freq PRN Reason Stop Dose Admin Apixaban 5 mg 02/22/20 09:00 02/23/20 08:50 Apixaban 5 Mg Tablet PO 5 mg BID ADRIANA Administration Atorvastatin Calcium 40 mg 02/22/20 09:00 02/23/20 08:50 Atorvastatin Calcium 40 Mg Tablet PO 40 mg DAILY ADRIANA Administration Fluticasone Propionate 2 spray 02/22/20 09:00 02/23/20 08:51 Fluticasone Propionate Nasal 16 Gm [place] NOSTRIL-B Not Given DAILY ADRIANA Folic Acid 1 mg 02/23/20 09:00 02/23/20 08:50 Folic Acid 1 Mg Tablet PO 1 mg DAILY ADRIANA Administration Medication 1 each 02/23/20 09:00 No Benzodiazepines MISCELLANE DAILY ADRIANA Metoprolol Succinate 25 mg 02/22/20 09:00 02/23/20 08:50 Metoprolol Succinate Er 25 Mg Tab.Er.24h PO 25 mg DAILY ADRIANA Administration Protocol Multivitamins/Vitamin C 1 tab 02/23/20 09:00 02/23/20 08:50 Multivitamin Tablet PO 1 tab DAILY [facility] Administration Pharmacy Consult 1 each 02/21/20 21:19 Consult Rx Perform Med Rec MISCELLANE ONCE PRN Consult order Phenobarbital 45 mg 02/23/20 09:00 02/23/20 08:49 Phenobarbital 15 Mg Tablet PO 02/24/20 21:01 45 mg BID ADRIANA Administration Phenobarbital 30 mg 02/25/20 09:00 Phenobarbital 30 Mg Tablet PO 12/06/20 21:01 BID ADRIANA Phenobarbital 15 mg 02/27/20 09:00 Phenobarbital 15 Mg Tablet PO 02/28/20 09:01 DAILY ADRIANA Sodium Chloride 3 ml 02/22/20 00:03 02/23/20 15:40 0.9 % Sodium Chloride Flush 3 Ml Syringe IVFLUSH 3 ml QSHIFT ADRIANA Administration Thiamine HCl 100 mg 02/23/20 09:00 02/23/20 08:50 Thiamine Hcl 100 Mg Tablet PO 100 mg DAILY ADRIANA Administration Labs CBC & Chem 7: 02/23/20 05:42 02/23/20 05:42 Assessment and Plan (1) Atrial fibrillation: Status: Acute Assessment and Plan: This is a 79 yo F who presented to the hospital with neurological issues which were felt to be secondary to a stroke vs. seizures. Her MRI completed showed no acute CVA. 1. Toxic/Metabolic Encephalopathy improving possibly due to alcohol vs delirium from hospitalization 2. Alcohol abuse with high risk for withdrawal phenobarb per protocol monitor labs improving 3. PAF continue home meds continue other care DNR/DNI -- informed by the patients granddaughter DVT pptxNeri
[2020-02-24] VITALS (7 sets, daily range): BP systolic 102–144; BP diastolic 55–90; PULSE 86–99; RESP 14–18; TEMP 36.3–36.8; O2SAT 93–94
[2020-02-24] MEDS: 0.9 % Sodium Chloride Flush 3 ML SYRINGE IVFLUSH ×4 (00:44→20:49)
[2020-02-24 06:44] LABS: Hematocrit 38.7 % (37-47); Hemoglobin 13.1 g/dl (12.0-16.0); Mean Corpuscular HGB Conc 33.9 g/dl (31.0-35.0); Mean Corpuscular Hemoglobin 32.1 pg (27.0-33.0); Mean Corpuscular Volume 94.9 fL (80-98); Mean Platelet Volume 10.4 fL (9.4-12.3); Platelet Count 277 X10*3/uL (160-400); Red Blood Count 4.08 X10*6/uL (4.20-5.50); Red Cell Distribution Width 11.6 % (11.0-16.0); White Blood Count 6.7 X10*3/uL (4.8-10.8)
[2020-02-24 06:45] LABS: Anion Gap 12 (12-20); Blood Urea Nitrogen 21 mg/dL (9-16); Calcium 8.9 mg/dL (8.4-10.2); Carbon Dioxide 25 mmol/L (22-29); Chloride 99 mmol/L (96-108); Creatinine Clr Calc Pharmacy 68.3; Estimated Glomerular Filt Rate > 60; Glucose Random 87 mg/dL (60-115); Potassium 3.7 mmol/l (3.3-5.1); Sodium 132 mmol/L (135-145)
[2020-02-24] MEDS: Apixaban 5 MG TABLET PO ×2 (09:57→20:49)
[2020-02-24] MEDS: Folic Acid 1 MG TABLET PO (09:57)
[2020-02-24] MEDS: PHENobarbitaL 15 MG TABLET 45 MG PO (09:58)
[2020-02-24] MEDS: Thiamine HCL 100 MG TABLET PO (09:58)
[2020-02-24] MEDS: Atorvastatin Calcium 40 MG TABLET PO (09:58)
[2020-02-24] MEDS: Metoprolol Succinate ER 25 MG TAB.ER.24H PO (09:58)
[2020-02-24] MEDS: Multivitamin TABLET 1 TAB PO (09:58)
[2020-02-24] MEDS: Fluticasone Propionate Nasal 16 GM SPRAY 2 SPRAY NOSTRIL-B (10:06)
--- NOTE | 2020-02-24 12:55 | MHC.CM.PN ---
Patient's discharge plan remains home no services. Jose C will provide transport [phone]. CM will continue to follow patient for discharge needs.
--- NOTE | 2020-02-24 16:23 | P.PNIM_ITS ---
Subjective Subjective Date of Service: 02/24/20 Interval History: seen and examined this AM Physical Exam Vital Signs: Vital Signs: Last Vital Signs Temp 98 F 02/24/20 15:32 Pulse 89 02/24/20 15:32 Resp 18 02/24/20 15:32 BP 133/77 02/24/20 15:32 Pulse Ox 93 02/24/20 15:32 Body Mass Index 20.6 Const: Other: General - no acute distress, appears comfortable Cardiovascular - regular rate and rhythm, S1-S2 Lungs - normal respiratory effort, clear to auscultation bilaterally, no wheezing Abdomen - soft, nontender, no rebound or guarding Extremities - no edema bilaterally Neuro - awake and alert, oriented to place Objective Data Current Medications Generic Name Dose Route Start Last Admin Trade Name Freq PRN Reason Stop Dose Admin Apixaban 5 mg 02/22/20 09:00 02/24/20 09:57 Apixaban 5 Mg Tablet PO 5 mg BID ADRIANA Administration Atorvastatin Calcium 40 mg 02/22/20 09:00 02/24/20 09:58 Atorvastatin Calcium 40 Mg Tablet PO 40 mg DAILY ADRIANA Administration Fluticasone Propionate 2 spray 02/22/20 09:00 02/24/20 10:06 Fluticasone Propionate Nasal 16 Gm [place] NOSTRIL-B 2 spray DAILY ADRIANA Administration Folic Acid 1 mg 02/23/20 09:00 02/24/20 09:57 Folic Acid 1 Mg Tablet PO 1 mg DAILY ADRIANA Administration Medication 1 each 02/23/20 09:00 No Benzodiazepines MISCELLANE DAILY [facility] Metoprolol Succinate 25 mg 02/22/20 09:00 02/24/20 09:58 Metoprolol Succinate Er 25 Mg Tab.Er.24h PO 25 mg DAILY ADRIANA Administration Protocol Multivitamins/Vitamin C 1 tab 02/23/20 09:00 02/24/20 09:58 Multivitamin Tablet PO 1 tab DAILY ADRIANA Administration Pharmacy Consult 1 each 02/21/20 21:19 Consult Rx Perform Med Rec MISCELLANE ONCE PRN Consult order Phenobarbital 45 mg 02/23/20 09:00 02/24/20 09:58 Phenobarbital 15 Mg Tablet PO 02/24/20 21:01 45 mg BID ADRIANA Administration Phenobarbital 30 mg 02/25/20 09:00 Phenobarbital 30 Mg Tablet PO 02/26/20 21:01 BID ADRIANA Phenobarbital 15 mg 02/27/20 09:00 Phenobarbital 15 Mg Tablet PO 02/28/20 09:01 DAILY ADRIANA Sodium Chloride 3 ml 02/22/20 00:03 02/24/20 15:43 0.9 % Sodium Chloride Flush 3 Ml Syringe IVFLUSH 3 ml QSHIFT ADRIANA Administration Thiamine HCl 100 mg 02/23/20 09:00 02/24/20 09:58 Thiamine Hcl 100 Mg Tablet PO 100 mg DAILY ADRIANA Administration Labs CBC & Chem 7: 02/24/20 05:24 02/24/20 05:24 Assessment and Plan (1) Atrial fibrillation: Status: Acute Assessment and Plan: This is a 79 yo F who presented to the hospital with neurological issues which were felt to be secondary to a stroke vs. seizures. Her MRI completed showed no acute CVA. 1. Toxic/Metabolic Encephalopathy improving possibly due to alcohol vs delirium from hospitalization 2. Alcohol abuse with high risk for withdrawal stop phenobarb -- not in withdrawal at this time 3. PAF continue home meds 4. Ankle fracture / weakness pt eval recs STR; pt agreeable at this time continue other care DNR/DNI DVT pptx, Neri dispo: STR hopefully tomorrow
[2020-02-25] VITALS (8 sets, daily range): BP systolic 107–152; BP diastolic 58–86; PULSE 58–94; RESP 16–18; TEMP 36–36.9; O2SAT 92–98
[2020-02-25 07:04] LABS: Hematocrit 37.4 % (37-47); Hemoglobin 12.8 g/dl (12.0-16.0); Mean Corpuscular HGB Conc 34.2 g/dl (31.0-35.0); Mean Corpuscular Hemoglobin 32.5 pg (27.0-33.0); Mean Corpuscular Volume 94.9 fL (80-98); Mean Platelet Volume 10.4 fL (9.4-12.3); Platelet Count 272 X10*3/uL (160-400); Red Blood Count 3.94 X10*6/uL (4.20-5.50); Red Cell Distribution Width 11.3 % (11.0-16.0); White Blood Count 6.4 X10*3/uL (4.8-10.8)
[2020-02-25 07:18] LABS: Anion Gap 13 (12-20); Blood Urea Nitrogen 16 mg/dL (9-16); Calcium 8.9 mg/dL (8.4-10.2); Carbon Dioxide 26 mmol/L (22-29); Chloride 98 mmol/L (96-108); Creatinine Clr Calc Pharmacy 66.2; Estimated Glomerular Filt Rate > 60; Glucose Random 93 mg/dL (60-115); Potassium 4.1 mmol/l (3.3-5.1); Sodium 133 mmol/L (135-145)
[2020-02-25] MEDS: Atorvastatin Calcium 40 MG TABLET PO (08:33)
[2020-02-25] MEDS: Metoprolol Succinate ER 25 MG TAB.ER.24H PO (08:33)
[2020-02-25] MEDS: Multivitamin TABLET 1 TAB PO (08:33)
[2020-02-25] MEDS: Thiamine HCL 100 MG TABLET PO (08:33)
[2020-02-25] MEDS: Folic Acid 1 MG TABLET PO (08:33)
[2020-02-25] MEDS: 0.9 % Sodium Chloride Flush 3 ML SYRINGE IVFLUSH ×3 (08:33→20:30)
[2020-02-25] MEDS: Apixaban 5 MG TABLET PO ×2 (08:33→20:26)
[2020-02-25] MEDS: Fluticasone Propionate Nasal 16 GM SPRAY 2 SPRAY NOSTRIL-B (08:33)
--- NOTE | 2020-02-25 14:46 | HO.PM.IMPN ---
Subjective Subjective Date of Service: 02/25/20 Interval History: seen and examined this AM no complaints agreeable on str Physical Exam Vital Signs: Vital Signs: Last Vital Signs Temp 97.6 F 02/25/20 11:23 Pulse 94 02/25/20 11:23 Resp 17 02/25/20 11:23 BP 130/80 02/25/20 11:23 Pulse Ox 93 02/25/20 11:23 Body Mass Index 20.6 Const: Other: General - no acute distress, appears comfortable Cardiovascular - regular rate and rhythm, S1-S2 Lungs - normal respiratory effort, clear to auscultation bilaterally, no wheezing Abdomen - soft, nontender, no rebound or guarding Extremities - no edema bilaterally Neuro - awake and alert, oriented to place Objective Data Current Medications Generic Name Dose Route Start Last Admin Trade Name Freq PRN Reason Stop Dose Admin Apixaban 5 mg 02/22/20 09:00 02/25/20 08:33 Apixaban 5 Mg Tablet PO 5 mg BID ADRIANA Administration Atorvastatin Calcium 40 mg 02/22/20 09:00 02/25/20 08:33 Atorvastatin Calcium 40 Mg Tablet PO 40 mg DAILY ADRIANA Administration Fluticasone Propionate 2 spray 02/22/20 09:00 02/25/20 08:33 Fluticasone Propionate Nasal 16 Gm [place] NOSTRIL-B 2 spray DAILY ADRIANA Administration Folic Acid 1 mg 02/23/20 09:00 02/25/20 08:33 Folic Acid 1 Mg Tablet PO 1 mg DAILY ADRIANA Administration Metoprolol Succinate 25 mg 02/22/20 09:00 02/25/20 08:33 Metoprolol Succinate Er 25 Mg Tab.Er.24h PO 25 mg DAILY ADRIANA Administration Protocol Multivitamins/Vitamin C 1 tab 02/23/20 09:00 02/25/20 08:33 Multivitamin Tablet PO 1 tab DAILY [facility] Administration Pharmacy Consult 1 each 02/21/20 21:19 Consult Rx Perform Med Rec MISCELLANE ONCE PRN Consult order Sodium Chloride 3 ml 02/22/20 00:03 02/25/20 14:41 0.9 % Sodium Chloride Flush 3 Ml Syringe IVFLUSH 3 ml QSHIFT ADRIANA Administration Thiamine HCl 100 mg 02/23/20 09:00 02/25/20 08:33 Thiamine Hcl 100 Mg Tablet PO 100 mg DAILY ADRIANA Administration Labs CBC & Chem 7: 02/25/20 05:40 02/25/20 05:40 Assessment and Plan (1) Atrial fibrillation: Status: Acute Assessment and Plan: This is a 79 yo F who presented to the hospital with neurological issues which were felt to be secondary to a stroke vs. seizures. Her MRI completed showed no acute CVA. 1. Toxic/Metabolic Encephalopathy resolved, at baseline 2. Alcohol abuse with high risk for withdrawal withdrawal resolved does not need any further phenobarb 3. PAF continue home meds 4. Ankle fracture / weakness STR rehab continue other care DNR/DNI DVT pptx, Eliquis dispo: medically stable, STR once accepted
--- NOTE | 2020-02-25 15:29 | MHC.CM.PN ---
Several referrals were made for STR however no facilities are able to offer a bed. Concepcion spoke to pts daughter/HCP, Maryanne ([phone]) who reports she would like referrals sent to [facility]. CONCEPCION explained a referral had already been sent to [facility]. Referral will be sent to [facility] per HCP request.
[2020-02-26 03:22] VITALS: BP 118/59; PULSE 69; RESP 18; TEMP 36.7; O2SAT 95
[2020-02-26 06:51] LABS: Hemoglobin 12.8 g/dl (12.0-16.0); Mean Corpuscular HGB Conc 34.6 g/dl (31.0-35.0); Mean Corpuscular Hemoglobin 33.1 pg (27.0-33.0); Mean Corpuscular Volume 95.6 fL (80-98); Mean Platelet Volume 10.2 fL (9.4-12.3); Platelet Count 284 X10*3/uL (160-400); Red Blood Count 3.87 X10*6/uL (4.20-5.50); Red Cell Distribution Width 11.4 % (11.0-16.0)
[2020-02-26 06:52] VITALS: BP 121/60; PULSE 78; RESP 18; TEMP 36.1; O2SAT 97
[2020-02-26 07:00] LABS: Anion Gap 15 (12-20); Blood Urea Nitrogen 17 mg/dL (9-16); Calcium 9.2 mg/dL (8.4-10.2); Carbon Dioxide 24 mmol/L (22-29); Chloride 100 mmol/L (96-108); Creatinine Clr Calc Pharmacy 72.9; Estimated Glomerular Filt Rate > 60; Glucose Random 89 mg/dL (60-115); Sodium 135 mmol/L (135-145)
[2020-02-26 08:52] VITALS: BP 121/60; PULSE 78
[2020-02-26] MEDS: Thiamine HCL 100 MG TABLET PO (08:52)
[2020-02-26] MEDS: Metoprolol Succinate ER 25 MG TAB.ER.24H PO (08:52)
[2020-02-26] MEDS: 0.9 % Sodium Chloride Flush 3 ML SYRINGE IVFLUSH (08:52)
[2020-02-26] MEDS: Atorvastatin Calcium 40 MG TABLET PO (08:53)
[2020-02-26] MEDS: Apixaban 5 MG TABLET PO (08:53)
[2020-02-26] MEDS: Folic Acid 1 MG TABLET PO (08:53)
[2020-02-26] MEDS: Multivitamin TABLET 1 TAB PO (08:53)
[2020-02-26] MEDS: Fluticasone Propionate Nasal 16 GM SPRAY 2 SPRAY NOSTRIL-B (09:00)
--- NOTE | 2020-02-26 10:00 | HO.PM.IMPN ---
Subjective Subjective Date of Service: 02/26/20 Interval History: seen and examined this AM no new issues reported denies foot pain ROS General - no fevers or chills Cardiovascular - no chest pain Respiratory - no shortness of breath or cough Abdominal- no abdominal pain, nausea, vomiting, diarrhea Physical Exam Vital Signs: Vital Signs: Last Vital Signs Temp 97 F 02/26/20 06:52 Pulse 78 02/26/20 08:52 Resp 18 02/26/20 06:52 BP 121/60 02/26/20 08:52 Pulse Ox 97 02/26/20 06:52 Body Mass Index 20.6 Const: Other: General - no acute distress, appears comfortable Cardiovascular - regular rate and rhythm, S1-S2 Lungs - normal respiratory effort, clear to auscultation bilaterally, no wheezing Abdomen - soft, nontender, no rebound or guarding Extremities - no edema bilaterally Neuro - awake and alert, oriented to place Objective Data Current Medications Generic Name Dose Route Start Last Admin Trade Name Freq PRN Reason Stop Dose Admin Apixaban 5 mg 02/22/20 09:00 02/26/20 08:53 Apixaban 5 Mg Tablet PO 5 mg BID ADRIANA Administration Atorvastatin Calcium 40 mg 02/22/20 09:00 02/26/20 08:53 Atorvastatin Calcium 40 Mg Tablet PO 40 mg DAILY ADRIANA Administration Fluticasone Propionate 2 spray 02/22/20 09:00 02/26/20 09:00 Fluticasone Propionate Nasal 16 Gm [place] NOSTRIL-B 2 spray DAILY ADRIANA Administration Folic Acid 1 mg 02/23/20 09:00 02/26/20 08:53 Folic Acid 1 Mg Tablet PO 1 mg DAILY ADRIANA Administration Metoprolol Succinate 25 mg 02/22/20 09:00 02/26/20 08:52 Metoprolol Succinate Er 25 Mg Tab.Er.24h PO 25 mg DAILY ADRIANA Administration Protocol Multivitamins/Vitamin C 1 tab 02/23/20 09:00 02/26/20 08:53 Multivitamin Tablet PO 1 tab DAILY [facility] Administration Pharmacy Consult 1 each 02/21/20 21:19 Consult Rx Perform Med Rec MISCELLANE ONCE PRN Consult order Sodium Chloride 3 ml 02/22/20 00:03 02/26/20 08:52 0.9 % Sodium Chloride Flush 3 Ml Syringe IVFLUSH 3 ml QSHIFT [facility] Administration Thiamine HCl 100 mg 02/23/20 09:00 02/26/20 08:52 Thiamine Hcl 100 Mg Tablet PO 100 mg DAILY ADRIANA Administration Labs CBC & Chem 7: 02/26/20 05:29 02/26/20 05:29 Assessment and Plan (1) Atrial fibrillation: Status: Acute Assessment and Plan: This is a 79 yo F who presented to the hospital with neurological issues which were felt to be secondary to a stroke vs. seizures. Her MRI completed showed no acute CVA. 1. Toxic/Metabolic Encephalopathy resolved, at baseline 2. Alcohol abuse with high risk for withdrawal withdrawal resolved does not need any further phenobarb 3. PAF continue home meds 4. Ankle fracture / weakness boot placed outpatient f/u with orthopedics 5. question of seizure seen by neurology initially who recommended keppra, however after rediscussion with them about the patients alcohol history -- advised against starting anti-epileptics and recommends on alcohol cessation continue other care DNR/DNI DVT pptx, Neri dispo: medically stable, STR once accepted
[2020-02-26 11:02] VITALS: BP 131/64; PULSE 62; RESP 18; TEMP 36.6; O2SAT 95
--- NOTE | 2020-02-26 11:50 | PM.DS ---
DS: Providers Provider Date of admission: 02/21/20 23:07 Primary care physician: Xander Vázquez MD Consults: 02/22/20 00:03 Consult to Neurology Routine Consulting Provider: [facility] Reason for consultation: suspected seizures Has provider been notified: No DS: Diagnosis Discharge Diagnosis (1) Alcohol abuse with physiological dependence: Status: Acute (2) Seizure: Status: Acute Problem details: possibly related to alcohol withdrawal (3) Atrial fibrillation: Status: Acute (4) Lateral malleolar fracture: Status: Acute DS: Medications Discharge Medications Home Medications: Home Medications Medication Instructions Recorded Confirmed Eliquis 5 mg PO BID 02/21/20 02/21/20 atorvastatin 40 mg PO DAILY 02/21/20 02/21/20 fluticasone propionate [Flonase 2 spray INTRANASAL DAILY 02/21/20 02/21/20 Allergy Relief] metoprolol succinate 25 mg PO DAILY 02/21/20 02/21/20 DS: Summary Hospital Course Hospital Course: patient presented with concerns over seizures. She was initially given IV Ativan in the emergency room and was subsequently admitted. She was evaluated by Neurology who initially recommended starting antiepileptics, however after further discussion with them about her alcohol history the advised against initiating antiepileptics and advised alcohol cessation. EEG was limited, but did not reveal any obvious abnormality. Patient was subsequently initiated on phenobarbital to prevent worsening of her probable alcohol withdrawal. She had electrolytes monitored and treated as necessary. Patient was also found to have a lateral malleolus fracture upon arrival and initially a splint was placed which was switched to a boot. She will be referred to outpatient follow-up with orthopedics. She was evaluated by Physical therapy who recommended short-term rehabilitation which the patient was accepted in transfer to. Time Spent with Patient Time attestation: Total time spent providing and/or coordinating discharge services: Physical Exam Vital Signs: Vital Signs: Last Vital Signs Temp 98 F 02/26/20 11:02 Pulse 62 02/26/20 11:02 Resp 18 02/26/20 11:02 BP 131/64 02/26/20 11:02 Pulse Ox 95 02/26/20 11:02 Body Mass Index 20.6 Const: Other: General - no acute distress, appears comfortable Cardiovascular - regular rate and rhythm, S1-S2 Lungs - normal respiratory effort, clear to auscultation bilaterally, no wheezing Abdomen - soft, nontender, no rebound or guarding Extremities - no edema bilaterally, RLE boot Neuro - awake and alert, oriented to place DS: Data Data Completed and Pending Labs on day of discharge: Laboratory Last Values WBC 6.0 X10*3/uL (4.8-10.8) 02/26/20 05:29 RBC 3.87 X10*6/uL (4.20-5.50) L 02/26/20 05:29 Hgb 12.8 g/dl (12.0-16.0) 02/26/20 05:29 Hct 37.0 % (37-47) 02/26/20 05:29 MCV 95.6 fL (80-98) 02/26/20 05:29 MCH 33.1 pg (27.0-33.0) H 02/26/20 05:29 MCHC 34.6 g/dl (31.0-35.0) 02/26/20 05:29 RDW 11.4 % (11.0-16.0) 02/26/20 05:29 Plt Count 284 X10*3/uL (160-400) 02/26/20 05:29 MPV 10.2 fL (9.4-12.3) 02/26/20 05:29 Immature Gran % (Auto) 0.6 % (0.0-0.4) H 02/22/20 06:38 Neut % (Auto) 73.6 % (45-73) H 02/22/20 06:38 Lymph % (Auto) 14.2 % (20-40) L 02/22/20 06:38 [place] % (Auto) 10.2 % (2-11) 02/22/20 06:38 Eos % (Auto) 0.8 % (0-4) 02/22/20 06:38 Baso % (Auto) 0.6 % (0-2) 02/22/20 06:38 Lymph # (Auto) 1.3 X10*3/uL (1.2-4.9) 02/22/20 06:38 [place] # (Auto) 0.9 X10*3/uL (0.1-1.2) 02/22/20 06:38 Eos # (Auto) 0.1 X10*3/uL (0.0-0.4) 02/22/20 06:38 Baso # (Auto) 0.1 X10*3/uL (0.0-0.2) 02/22/20 06:38 Abs Immat Gran (auto) 0.05 X10*3/uL (0.00-0.03) H 02/22/20 06:38 Absolute Neuts (auto) 6.6 X10*3/uL (2.0-8.3) 02/22/20 06:38 Absolute Nucleated RBC 0.000 X10*3/uL (0.0-0.012) 02/26/20 05:29 Nucleated RBC % (auto) 0.0 /100WBC (0.0-0.2) 02/26/20 05:29 PT 11.8 SEC (10.8-13.0) 02/21/20 19:26 Whole Blood PT 11.9 sec (11.1-13.5) 02/21/20 19:22 INR 1.0 (0.9-1.1) 02/21/20 19:26 Whole Blood INR 1.0 (0.9-1.1) 02/21/20 19:22 APTT 29.4 SEC (24.1-38.0) 02/21/20 19:26 Sodium 135 mmol/L (135-145) 02/26/20 05:29 Potassium 4.0 mmol/l (3.3-5.1) 02/26/20 05:29 Chloride 100 mmol/L (96-108) 02/26/20 05:29 Carbon Dioxide 24 mmol/L (22-29) 02/26/20 05:29 Anion Gap 15 (12-20) 02/26/20 05:29 BUN 17 mg/dL (9-16) H 02/26/20 05:29 Creatinine 0.59 mg/dL (0.5-1.4) 02/26/20 05:29 Estim Creat Clear Calc 72.9 02/26/20 05:29 Estimated GFR > 60 02/26/20 05:29 POC Glucose 105 mg/dL (60-115) 02/21/20 23:54 Random Glucose 89 mg/dL (60-115) 02/26/20 05:29 Calcium 9.2 mg/dL (8.4-10.2) 02/26/20 05:29 Magnesium 2.2 mg/dL (1.6-2.6) 02/23/20 05:42 Total Bilirubin 0.8 mg/dL (0.0-1.0) 02/21/20 19:25 Direct Bilirubin 0.3 mg/dL (0.0-0.5) 02/21/20 19:25 AST 24 U/L (5-31) 02/21/20 19:25 ALT 25 U/L (0-31) 02/21/20 19:25 Alkaline Phosphatase 78 U/L (39-117) 02/21/20 19:25 Total Creatine Kinase 20 U/L (26-140) L 02/21/20 19:25 Troponin I High Sens < 3.5 ng/L (<3.5-17.0) 02/21/20 19:26 Total Protein 6.6 g/dL (6.5-8.0) 02/21/20 19:25 Albumin 4.1 g/dL (3.5-5.0) 02/21/20 19:25 COVID-19 PCR Cancelled 02/22/20 00:06 COVID-19 (STEVE) Negative (Negative) 02/22/20 00:08 COVID-19 Clin Com See Note 02/22/20 00:08 Discharge Plan Discharge Patient Disposition: Xfer SNF Referrals: Xander Vázquez MD [Primary Care Provider] - Juan R Del Rio PA-C [Physician Sales Center Manager] - None (call office for appt) Discharge Medications: Continued atorvastatin 40 mg Tablet 40 mg PO DAILY RF: 0 metoprolol succinate 25 mg Tablet Extended Release 24 Hr 25 mg PO DAILY RF: 0 fluticasone propionate [Flonase Allergy Relief] 50 mcg/actuation [place],Suspension 2 spray INTRANASAL DAILY RF: 0 Eliquis 5 mg Tablet 5 mg PO BID RF: 0 Discharge Orders: Discharge Order (Routine); Ordered 02/26/20 Ordered By: Danny Hutchison Diet: advance to usual diet Activity on Discharge: As tolerated Visit Report Forms: Patient Portal Discharge page Care Plan Goals: To stay healthy and out of the hospital. Health Concerns: Alcohol Abuse and dependence Possible Seizure Ankle Fracture Plan of Treatment: Alcohol Abuse and dependence - you have been treated for withdrawal Possible Seizure - this may have been related to your alcohol abuse Ankle Fracture - keep boot and follow up with orthopedics
--- NOTE | 2020-02-26 12:06 | MHC.CM.PN ---
[facility] offering a short term rehab bed for pt. pt was informed and agreeable. Pt contacted family to update. CM currently awaiting a response from SNF liaison as to what time they would be able to accept the pt.
[2020-02-26 13:40] LABS: COVID-19 Test Negative (Negative); IDNOW Serial# 9DD0AD1C
== END 2020-02-26 15:15 | disposition skilled nursing facility (03) | DRG 101 ==
LOC: HO.ED 22:43 → HO.IMC 02-22 04:41
PROVIDERS: Physician Assistant Medical; Admitting Provider Internal Medicine; Emergency Provider Emergency Medicine Emergency Medical Services; PCP Internal Medicine; Visit Provider Family Medicine
DX: R56.9 Unspecified convulsions (principal); F10.239 Alcohol dependence with withdrawal, unspecified; S82.64XA Nondisplaced fracture of lateral malleolus of right fibula, initial encounter for closed fracture; Z20.828 Contact with and (suspected) exposure to other viral communicable diseases; R29.810 Facial weakness; Z86.73 Personal history of transient ischemic attack (TIA), and cerebral infarction without residual deficits; E78.5 Hyperlipidemia, unspecified; W18.30XA Fall on same level, unspecified, initial encounter; I48.0 Paroxysmal atrial fibrillation; Y93.9 Activity, unspecified; Y92.009 Unspecified place in unspecified non-institutional (private) residence as the place of occurrence of the external cause; Y99.9 Unspecified external cause status; Z79.51 Long term (current) use of inhaled steroids; Z79.01 Long term (current) use of anticoagulants; Z79.899 Other long term (current) drug therapy; Z66 Do not resuscitate
CPT/HCPCS: 36415; 70450; 70551; 71045; 73610; 73630; 80048; 80076; 82550; 82947; 83735; 84484; 85025; 85027; 85610; 85730; 87635; 93005; 95816; 96372; 96374; 97162; 99285; 99291; J2060; J2560; U0003

== ENCOUNTER → 2020-03-05 12:20 | Outpatient (BNVA) | payer MEDICARE, OTHER, SELFPAY | PROVIDERS: PCP Internal Medicine; Visit Provider Orthopaedic Surgery | DX: S82.61XA Displaced fracture of lateral malleolus of right fibula, initial encounter for closed fracture (principal) | CPT/HCPCS: 99202 ==

== ENCOUNTER 2020-05-14 09:54 | Outpatient (REF) | payer MEDICARE, OTHER, SELFPAY ==
[2020-05-14 10:46] LABS: MANUAL DIFF FLAG NO
[2020-05-14 11:00] LABS: Basophils Absolute Auto 0.1 X10*3/uL (0.0-0.2); Basophils Percent Auto 1.4 % (0-2); Eosinophils Absolute Auto 0.3 X10*3/uL (0.0-0.4); Eosinophils Percent Auto 5.4 % (0-4); Hemoglobin 12.7 g/dl (12.0-16.0); Imm Gran Abs Auto 0.01 X10*3/uL (0.00-0.03); Imm Gran Pct Auto 0.2 % (0.0-0.4); Lymphocytes Absolute Auto 1.6 X10*3/uL (1.2-4.9); Lymphocytes Percent Auto 33.5 % (20-40); Mean Corpuscular HGB Conc 32.6 g/dl (31.0-35.0); Mean Corpuscular Hemoglobin 30.6 pg (27.0-33.0); Mean Platelet Volume 10.3 fL (9.4-12.3); Monocytes Absolute Auto 0.6 X10*3/uL (0.1-1.2); Monocytes Percent Auto 11.8 % (2-11); Neutrophils Absolute Auto 2.3 X10*3/uL (2.0-8.3); Neutrophils Percent Auto 47.7 % (45-73); Platelet Count 300 X10*3/uL (160-400); Red Blood Count 4.15 X10*6/uL (4.20-5.50); Red Cell Distribution Width 12.2 % (11.0-16.0); White Blood Count 4.8 X10*3/uL (4.8-10.8)
[2020-05-14 11:29] LABS: Alanine Aminotransferase 44 U/L (0-31); Albumin Level 4.3 g/dL (3.5-5.0); Alkaline Phosphatase 107 U/L (39-117); Anion Gap 11 (12-20); Aspartate Amino Transferase 30 U/L (5-31); Bilirubin Total 0.9 mg/dL (0.0-1.0); Blood Urea Nitrogen 13 mg/dL (9-16); Calcium 9.3 mg/dL (8.4-10.2); Carbon Dioxide 30 mmol/L (22-29); Chloride 102 mmol/L (96-108); Cholesterol 229 mg/dL; Estimated Glomerular Filt Rate > 60; Glucose Random 94 mg/dL (60-115); HDL Cholesterol 63 mg/dL; LDL Cholesterol Calculated 149 mg/dl; Magnesium 2.2 mg/dL (1.6-2.6); Potassium 4.6 mmol/L (3.3-5.1); Sodium 138 mmol/L (135-145); Triglycerides 88 mg/dL
[2020-05-14 11:50] LABS: Thyroid Stimulating Hormone 0.87 uIU/mL (0.32-4.0)
== END 2020-05-14 09:55 | disposition home or self-care (01) ==
LOC: HO.LAB 09:54
PROVIDERS: PCP Internal Medicine; Visit Provider Internal Medicine
DX: R56.9 Unspecified convulsions (principal); I42.9 Cardiomyopathy, unspecified; I10 Essential (primary) hypertension; E78.00 Pure hypercholesterolemia, unspecified; E55.9 Vitamin D deficiency, unspecified
CPT/HCPCS: 36415; 80053; 80061; 82306; 83735; 84443; 85025

== ENCOUNTER 2020-08-14 08:19 | Outpatient (REF) | payer MEDICARE, OTHER, SELFPAY ==
--- NOTE | ~2020-08-14 | FL_ITS ---
EXAMINATION: FL BARIUM SWALLOW CLINICAL INFORMATION: Dysphagia COMPARISON: None TECHNIQUE: Barium swallow examination is performed using fluoroscopic evaluation in addition to multiple fluoroscopic spot views. The patient is imaged both upright and prone and using both thick and thin sulfate along with effervescent granules. Barium tablet was also administered. Fluoroscopy time: 1.5 minutes DAP: 20 Gycm2 Images: 59 FINDINGS: The swallowing mechanism is normal. No aspiration or penetration is seen. There is impression on the thoracic esophagus from the aortic knob. There is significant gastroesophageal reflux. There is a some mucosal irregularity of the distal esophagus questionable for mild esophagitis. No mass or stricture is seen. No hernia is seen. There is temporary stasis of barium tablet at the GE junction. FL/FL barium swallow IMPRESSION: Significant gastroesophageal reflux. Question mild distal esophagitis. Mild mass effect on the thoracic aorta from the aortic knob.
== END 2020-08-14 08:20 | disposition home or self-care (01) ==
LOC: HO.XRAY 08:19
PROVIDERS: PCP Internal Medicine; Visit Provider Internal Medicine
DX: R13.10 Dysphagia, unspecified (principal)
CPT/HCPCS: 74220

== ENCOUNTER 2021-11-20 10:10 | Emergency (ER) | payer MEDICARE, OTHER, SELFPAY ==
--- NOTE | ~2021-11-20 | CT_ITS ---
EXAMINATION: CT CERVICAL SPINE WITHOUT CONTRAST CLINICAL INFORMATION: Fall. Head trauma. COMPARISON: None TECHNIQUE: Axial images through the cervical spine without contrast. Sagittal and coronal reconstructions on the technologist workstation were performed. This CT examination was performed using dose optimization techniques as appropriate, variously including the following: *Automated exposure control *Adjustment of mA and/or kV according to patient size (this includes techniques or standardized protocols for targeted exams where dose is matched to indication/reason for exam; i.e. extremities or head) *Use of iterative reconstruction technique DLP: 232 mGy-cm FINDINGS: There is mild 2 mm retrolisthesis of C5 with respect to C6. Bone alignment is otherwise normal. 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 No fracture or dislocation. There is degenerative spondylosis and degenerative disc disease at C5-C6 and C6-C7. There are degenerative changes at the C1 dens articulation. There is mild bilateral facet arthritis. Prevertebral soft tissues are normal. There is bilateral carotid calcification. There is biapical pleural and parenchymal scarring. CT/CT cervical spine wo IV con IMPRESSION: Degenerative changes. No fracture or dislocation. Fleischner guidelines were followed.
--- NOTE | ~2021-11-20 | CT_ITS ---
EXAMINATION: CT HEAD WITHOUT CONTRAST CLINICAL INFORMATION: Fall. Head trauma. COMPARISON: Previous head CT most recent February 2020 TECHNIQUE: Contiguous axial imaging was performed from the skull base to vertex without intravenous administration of contrast. This CT examination was performed using dose optimization techniques as appropriate, variously including the following: *Automated exposure control *Adjustment of mA and/or kV according to patient size (this includes techniques or standardized protocols for targeted exams where dose is matched to indication/reason for exam; i.e. extremities or head) *Use of iterative reconstruction technique DLP: 568 mGy-cm FINDINGS: Exam is limited due to motion artifact. There is no evidence of an extra-axial collection. There is no evidence of intra-axial or extra-axial hemorrhage. Ventricles and extra-axial CSF spaces are appropriate. There is nonspecific periventricular white matter disease. There are old basal ganglia/right internal capsule lacunar infarcts. There is an old infarct in the left yuriy. These appear unchanged from previous exams. No mass, mass effect or acute infarct is seen. There is evidence of atherosclerotic disease. Evaluation of the skull base is limited due to motion artifact. No skull fracture is seen. CT/CT head/brain wo IV con IMPRESSION: Limited exam due to motion artifact. Nonspecific periventricular white matter disease and old infarcts. No acute findings.
[2021-11-20 10:16] VITALS: BP 141/83; BP 150/90; PULSE 100; PULSE 95; RESP 16; TEMP 37; O2SAT 95; O2SAT 98; BMI 16.6
--- NOTE | 2021-11-20 10:22 | ED_ITS ---
HPI - Fall General Chief Complaint: Fall Stated Complaint: DIZZY Time Seen by Provider: 11/20/21 10:21 Source: EMS Mode of arrival: EMS Limitations: altered mental status History of Present Illness HPI Narrative: Patient with multiple falls today, she has dementia and cant tell the story. complaint: fall Onset (ago): hour(s) Related Data Home Medications Medication Instructions Recorded Confirmed apixaban 5 mg tablet (Eliquis) 5 mg PO BID 02/21/20 03/05/20 atorvastatin 40 mg tablet 40 mg PO DAILY 02/21/20 03/05/20 fluticasone propionate 50 2 spray intranasal DAILY 02/21/20 03/05/20 mcg/actuation nasal spray,suspension (Flonase Allergy Relief) metoprolol succinate 25 mg 25 mg PO DAILY 02/21/20 03/05/20 tablet,extended release 24 hr apixaban 5 mg tablet (Eliquis) 5 mg PO BID 03/05/20 03/05/20 sennosides 8.6 mg capsule (senna) 8.6 mg PO DAILY 03/05/20 03/05/20 Allergies Allergy/AdvReac Type Severity Reaction Status Date / Time bee pollen [Bee Stings] Allergy Intermediate HIVES Verified 03/05/20 13:16 atorvastatin [Lipitor] Allergy Unknown Hives Verified 03/05/20 13:16 bee stings Allergy Unknown Hives Uncoded 03/05/20 13:16 Review of Systems Review of Systems: Yes Unobtainable due to mental status Neurologic: Denies Sensory deficit (Neuro) [facility] Past Medical History Medical History History of multiple strokes Social History Social History Alcohol intake: unknown Advance Directives: Yes Advance Directives on File: Yes Advance Directives Date on File: 02/27/20 service: No Current occupational status: retired Current occupation: right handed Physical Exam Vital Signs: Vital Signs: Last Vital Signs Temp 98.6 F 11/20/21 11:01 Pulse 102 H 11/20/21 13:50 Resp 16 11/20/21 13:50 BP 138/92 H 11/20/21 13:50 Pulse Ox 97 11/20/21 13:50 O2 Del Method 11/20/21 13:50 BMI result Body Mass Index 16.6 Const: Other: thin elderly female in ccollar, no acute distress Nutritional Appearance: thin Orientation/consciousness: oriented to person Limitations: altered mental status HEENT: Head: Yes normal to inspection Ears: external ears normal General nose exam: Normal external nose present Mouth: Normal oral and palatal mucosa present and oropharynx normal Throat: Yes posterior oropharynx normal Eyes: General: appearance normal, both eyes and all related structures Neck: Other: supple Neck: Yes normal visual inspection Chest: Chest palpation & inspection: normal inspection of the chest Resp: Auscultation: clear to auscultation bilaterally Cardio: Jugular venous distension: no JVD Rate: regular rate Rhythm: reg ular rhythm Heart sounds: S1 normal heart sound present and S2 normal heart sound present GI: Inspection: Yes normal to inspection Palpation (GI): Soft to palpation, nontender and No hepatosplenomegaly present Auscultation: normal bowel sounds : General: Yes no CVA tenderness Back/Spine/Pelvis: Back: no CVA tenderness Skin: General skin exam: no rashes or lesions noted Neuro: General: oriented to person Cranial nerves: Yes CN's II-XII intact bilaterally Motor exam (neuro): 5/5 motor strength present throughout Sensory Exam: No Sensory deficit (Neuro) Extrem: General: Yes normal to inspection Psych: Other: flat affect oriented to person and place Course Reevaluation(s) Reevaluation #1: patient with mild hyponatremia will dc home Time: 16:05 MDM - Fall Lab Data Result diagrams: 11/20/21 10:50 11/20/21 10:50 Labs: Lab Results 11/20/21 11/20/21 11/20/21 Range/Units 10:50 10:50 14:13 WBC 9.8 (4.8-10.8) X10*3/uL RBC 4.49 (4.20-5.50) X10*6/uL Hgb 14.6 (12.0-16.0) g/dl Hct 41.6 (37.0-47.0) % MCV 92.7 (80.0-98.0) fL MCH 32.5 (27.0-33.0) pg MCHC 35.1 H (31.0-35.0) g/dl RDW 11.8 (11.0-16.0) % Plt Count 318 (160-400) X10*3/uL MPV 9.3 L (9.4-12.3) fL Immature Gran % (Auto) 0.3 (0.0-0.4) % Neut % (Auto) 90.1 H (45-73) % Lymph % (Auto) 4.2 L (20-40) % [place] % (Auto) 5.0 (2-11) % Eos % (Auto) 0.1 (0-4) % Baso % (Auto) 0.3 (0-2) % Lymph # (Auto) 0.4 L (1.2-4.9) X10*3/uL [place] # (Auto) 0.5 (0.1-1.2) X10*3/uL Eos # (Auto) 0.0 (0.0-0.4) X10*3/uL Baso # (Auto) 0.0 (0.0-0.2) X10*3/uL Abs Immat Gran (auto) 0.03 (0.00-0.03) X10*3/uL Absolute Neuts (auto) 8.8 H (2.0-8.3) x10*3/uL Absolute Nucleated RBC 0.000 (0.0-0.012) X10*3/uL Nucleated RBC % (auto) 0.0 (0.0-0.2) /100WBC Smear Tech's Comments VERIFIED Sodium 130 L (135-145) mmol/L Potassium 3.9 (3.3-5.1) mmol/L Chloride 93 L (96-108) mmol/L Carbon Dioxide 23 (22-29) mmol/L Anion Gap 18 (12-20) BUN 5 L (9-16) mg/dL Creatinine 0.65 (0.5-1.4) mg/dL Estim Creat Clear Calc 53.2 Estimated GFR > 60 Random Glucose 126 H (60-115) mg/dL Calcium 9.2 (8.4-10.2) mg/dL Urine Color Yellow Urine Appearance Clear Urine pH 8.0 (5.0-9.0) Ur Specific [place] 1.015 (1.005-1.025) Urine Protein 30 (1+) H (Neg-Trace) mg/dL Urine Glucose (UA) 100 H (Negative) mg/dL Urine Ketones Trace (Negative) mg/dL Urine Blood Negative (Negative) Urine Nitrite Negative (Negative) Ur Leukocyte Esterase Negative (Negative) Urine RBC 0-2 (0-2) /HPF Urine WBC 0-5 (0-5) /HPF Ur Squamous Epith Cells 0-2 (0-2) /HPF Urine Bacteria Trace (None Seen) Hyaline Casts 0-2 (0-2) /LPF Imaging Data CT Neck: Radiologist's impression: IMPRESSION: Degenerative changes. No fracture or dislocation.? ? Fleischner guidelines were followed. CT scan - head: Radiologist's impression: FINDINGS: Exam is limited due to motion artifact. There is no evidence of an extra-axial collection. There is no evidence of intra-axial or extra-axial hemorrhage. Ventricles and extra-axial CSF spaces are appropriate. There is nonspecific periventricular white matter disease. There are old basal ganglia/right internal capsule lacunar infarcts. There is an old infarct in the left yuriy. These appear unchanged from previous exams. No mass, mass effect or acute infarct is seen. There is evidence of atherosclerotic disease. Evaluation of the skull base is limited due to motion artifact. No skull fracture is seen. ? CT/CT head/brain wo IV con IMPRESSION: Limited exam due to motion artifact. Nonspecific periventricular white matter disease and old infarcts. No acute findings. ECG Data Attestation: I personally reviewed and interpreted this ECG as follows: Interpretation: sinus tachycardia, rate 105, old inferior ID, no st or twave changes Discharge Plan Discharge Clinical Impression: Hyponatremia Patient Disposition: Home, Self-Care Instructions: Hyponatremia (ED) Prescriptions: No Action atorvastatin 40 mg Tablet 40 mg PO DAILY metoprolol succinate 25 mg Tablet Extended Release 24 Hr 25 mg PO DAILY fluticasone propionate [Flonase Allergy Relief] 50 mcg/actuation [place]ra [place],Suspension 2 spray INTRANASAL DAILY Eliquis 5 mg Tablet 5 mg PO BID Eliquis 5 mg tablet 5 mg PO BID senna 8.6 mg capsule 8.6 mg PO DAILY Referrals: Xander Vázquez MD [Primary Care Provider] - 5 days
--- NOTE | 2021-11-20 10:27 | ECG_ITS ---
Test Reason : fall Blood Pressure : / mmHG Vent. Rate : 108 BPM Atrial Rate : 117 BPM P-R Int : 176 ms QRS Dur : 086 ms QT Int : 362 ms P-R-T Axes : 000 -37 078 degrees QTc Int : 485 ms Sinus tachycardia Left axis deviation Nonspecific ST and T wave abnormality Abnormal ECG When compared with ECG of 21-FEB-2020 19:05, Vent. rate has increased BY 42 BPM Incomplete right bundle branch block is no longer Present Referred By: Rene Foster Electronically Signed By:TUAN WEINER
[2021-11-20 11:00] LABS: Basophils Percent Auto 0.3 % (0-2); Eosinophils Percent Auto 0.1 % (0-4); Hematocrit 41.6 % (37.0-47.0); Hemoglobin 14.6 g/dl (12.0-16.0); Imm Gran Abs Auto 0.03 X10*3/uL (0.00-0.03); Imm Gran Pct Auto 0.3 % (0.0-0.4); Lymphocytes Absolute Auto 0.4 X10*3/uL (1.2-4.9); Lymphocytes Percent Auto 4.2 % (20-40); MANUAL DIFF FLAG SCAN; Mean Corpuscular HGB Conc 35.1 g/dl (31.0-35.0); Mean Corpuscular Hemoglobin 32.5 pg (27.0-33.0); Mean Corpuscular Volume 92.7 fL (80.0-98.0); Mean Platelet Volume 9.3 fL (9.4-12.3); Monocytes Absolute Auto 0.5 X10*3/uL (0.1-1.2); Neutrophils Absolute Auto 8.8 x10*3/uL (2.0-8.3); Neutrophils Percent Auto 90.1 % (45-73); Platelet Count 318 X10*3/uL (160-400); Red Blood Count 4.49 X10*6/uL (4.20-5.50); Red Cell Distribution Width 11.8 % (11.0-16.0); SCAN SMEAR FLAG 1; White Blood Count 9.8 X10*3/uL (4.8-10.8)
[2021-11-20 11:01] VITALS: BP 141/83; PULSE 95; RESP 16; TEMP 37; O2SAT 95
[2021-11-20 11:09] LABS: Anion Gap 18 (12-20); Blood Urea Nitrogen 5 mg/dL (9-16); Calcium 9.2 mg/dL (8.4-10.2); Carbon Dioxide 23 mmol/L (22-29); Chloride 93 mmol/L (96-108); Creatinine Clr Calc Pharmacy 53.2; Estimated Glomerular Filt Rate > 60; Glucose Random 126 mg/dL (60-115); Potassium 3.9 mmol/L (3.3-5.1); Sodium 130 mmol/L (135-145)
[2021-11-20 12:08] LABS: SLIDE REVIEW VERIFIED
[2021-11-20 13:50] VITALS: BP 138/92; PULSE 102; RESP 16; O2SAT 97
--- NOTE | 2021-11-20 14:12 | PC.NURSE ---
PT ASSISTED BY THIS RN TO RESTROOM. PT ABLE TO BEAR OWN WEIGHT, AMBULATING STEADILY WITH MINIMAL ASSISTANCE. NO ISSUES, PT DENIED DIZZINESS, C/O OF MILD R LEG PAIN. URINE SPECIMEN OBTAINED
[2021-11-20 14:22] LABS: Appearance Urine Clear; Color Urine Yellow; Glucose Urine UA 100 mg/dL (Negative); Leukocyte Esterase Urine Negative (Negative); Nitrite Urine Negative (Negative); Specific Gravity - Urine 1.015 (1.005-1.025); Urine Blood Negative (Negative); Urine Ketones Trace mg/dL (Negative); Urine Protein 30 (1+) mg/dL (Neg-Trace)
[2021-11-20 14:25] LABS: Bacteria Urine Trace (None Seen); Hyaline Casts Urine 0-2 /LPF (0-2); RBC Urine 0-2 /HPF (0-2); Squamous Epithelial Cell Urine 0-2 /HPF (0-2); WBC Urine 0-5 /HPF (0-5)
[2021-11-20 16:27] VITALS: BP 129/85; PULSE 93; RESP 16; O2SAT 95
== END 2021-11-20 16:28 | disposition home or self-care (01) ==
PROVIDERS: Emergency Provider Emergency Medicine; PCP Internal Medicine
DX: E87.1 Hypo-osmolality and hyponatremia (principal); M54.2 Cervicalgia; R42 Dizziness and giddiness; F03.90 Unspecified dementia, unspecified severity, without behavioral disturbance, psychotic disturbance, mood disturbance, and anxiety; R51.9 Headache, unspecified; Z79.899 Other long term (current) drug therapy
CPT/HCPCS: 36415; 70450; 72125; 80048; 81001; 85025; 93005; 99284

== ENCOUNTER 2022-10-22 16:56 | Emergency (ER) | payer MEDICARE, OTHER, SELFPAY ==
--- NOTE | ~2022-10-22 | CT_ITS ---
EXAMINATION: CT HEAD WITHOUT CONTRAST (STROKE PROTOCOL) CLINICAL INFORMATION: Stroke protocol. Expressive aphasia COMPARISON: CT brain 11/20/2021 TECHNIQUE: Contiguous axial imaging was performed from the skull base to vertex without intravenous administration of contrast. This CT examination was performed using dose optimization techniques as appropriate, variously including the following: *Automated exposure control *Adjustment of mA and/or kV according to patient size (this includes techniques or standardized protocols for targeted exams where dose is matched to indication/reason for exam; i.e. extremities or head) *Use of iterative reconstruction technique DLP: 587 mGy-cm FINDINGS: There is no acute intra-axial, extra-axial bleed, masses or midline shift. There is no acute infarction in evolution. The cortical sulci are symmetrical and maintained normal. There is no edema. The lateral ventricles are symmetrical in size and configuration but mildly enlarged. There is periventricular hypodensity in both cerebral hemispheres without mass effect. It is stable compared to previous study 11/20/2021. Bone windows reveal no calvarial abnormality. There is no scalp soft tissue abnormality. Bilateral paranasal sinuses are well-aerated. Incidental finding of mild degenerative changes left TM joint are noted. There is mild thickening of left tympanic membrane. CT/CT head for stroke IMPRESSION: No acute intracranial process seen. This critical result was discussed with Dr. Chandler at 5:15 PM on 10/22/2022. It was ascertained that the content and urgency of the report was understood at the time of direct communication.
--- NOTE | 2022-10-22 17:01 | ECG_ITS ---
Test Reason : Altered Mental status Blood Pressure : / mmHG Vent. Rate : 067 BPM Atrial Rate : 067 BPM P-R Int : 160 ms QRS Dur : 074 ms QT Int : 446 ms P-R-T Axes : 000 -28 023 degrees QTc Int : 471 ms Sinus rhythm with Premature atrial complexes Nonspecific ST and T wave abnormality Prolonged QT Abnormal ECG When compared with ECG of 20-NOV-2021 10:46, Premature atrial complexes are now Present Vent. rate has decreased BY 41 BPM Referred By: Ramesh Rosas Electronically Signed By:LAKHWINDER VILLASENOR
--- NOTE | 2022-10-22 17:01 | ED.NEUROSD ---
HPI - Neuro Symptoms/Deficit General Chief Complaint: Stroke Stated Complaint: past strokes, sudden onset of confusion, per ems Time Seen by Provider: 10/22/22 17:00 Source: patient, family and EMS Mode of arrival: EMS Limitations: altered mental status History of Present Illness HPI Narrative: Patient history of dementia and TIAs in the past last time patient was seen was in 11/11 when she had similar episode of confusion possible seizure started on Keppra. For last 6 months patient noncompliant with medications sometimes she takes the medication in her mouth and spit it out later on supposed to be on Eliquis but not sure when she took it last time. Today while sitting for the lunch with [employer] started feeling falling backward with expressive aphasia and slight confusion noticed to have more weakness on the left side than the right after arrival Related Data Home Medications Medication Instructions Recorded Confirmed apixaban 5 mg tablet (Eliquis) 5 mg PO BID 02/21/20 03/05/20 atorvastatin 40 mg tablet 40 mg PO DAILY 02/21/20 03/05/20 fluticasone propionate 50 2 spray intranasal DAILY 02/21/20 03/05/20 mcg/actuation nasal spray,suspension (Flonase Allergy Relief) metoprolol succinate 25 mg 25 mg PO DAILY 02/21/20 03/05/20 tablet,extended release 24 hr apixaban 5 mg tablet (Eliquis) 5 mg PO BID 03/05/20 03/05/20 sennosides 8.6 mg capsule (senna) 8.6 mg PO DAILY 03/05/20 03/05/20 Previous Rx's Medication Instructions Recorded cefuroxime axetil 250 mg tablet 250 mg PO BID 5 days #10 tabs 10/22/22 Allergies Allergy/AdvReac Type Severity Reaction Status Date / Time bee pollen [Bee Stings] Allergy Intermediate HIVES Verified 03/05/20 13:16 atorvastatin [Lipitor] Allergy Unknown Hives Verified 03/05/20 13:16 bee stings Allergy Unknown Hives Uncoded 03/05/20 13:16 Review of Systems Review of Systems: Yes all other systems are reviewed and are negative PMFSH Past Medical History Medical History History of multiple strokes Social History Social History Alcohol intake: former Smoked in Last 30 Days: No Use of substances other than those prescribed or required for medical reasons: No Advance Directives: Yes Advance Directives on File: Yes Advance Directives Date on File: 02/27/20 service: No Current occupational status: retired Current occupation: right handed Physical Exam Vital Signs: Vital Signs: Last Vital Signs Pulse 77 10/22/22 18:06 Resp 18 10/22/22 18:06 BP 144/65 H 10/22/22 18:06 Pulse Ox 92 10/22/22 18:06 O2 Del Method Room Air 10/22/22 18:06 BMI result Body Mass Index 19.1 Appearance: Alert. Oriented X1-2. No acute distress. Slow in speech Eyes: PERRLA, No Nystagmus ENT: Pharynx normal. Oral Mucosa moist Neck: Normal inspection. Neck supple. CVS: Normal heart rate and rhythm. Pulses normal. Respiratory: No respiratory distress. Equal air entry bilateral, no wheezing/rales/rhonchi Abdomen: Soft and nontender. Bowel sounds are present, no mass palpable, no CVA tenderness Skin: Skin warm and dry. Normal skin color. Normal skin turgor. Extremities: No lower extremity edema. No calf tenderness Neuro: Oriented X 3. Expressive aphasia slow in speaking No motor deficit. No sensory deficit.No cerebellar signs , cranial nerves II-XII intact Medications Administered Discontinued Medications Generic Name Dose Route Start Last Admin Trade Name Freq PRN Reason Stop Dose Admin Acetaminophen 650 mg 10/22/22 19:39 10/22/22 19:48 Acetaminophen 325 Mg Tablet PO 10/22/22 19:40 650 mg ONCE ONE Administration Cefuroxime Axetil 250 mg 10/22/22 19:58 10/22/22 20:14 Cefuroxime Axetil 250 Mg Tablet PO 10/22/22 19:59 250 mg ONCE ONE Administration Medical Decision Making Medical Decision Making [facility] Narrative: Patient dementia with transient expressive aphasia and confusion no focal deficits otherwise case discussed with Dr. Ramon neurologist no further intervention needed look for other causes for change in mental status Patient able to ambulate back to her baseline workup showed slight UTI discharge patient home on Ceftin Differential Diagnosis Differential Diagnoses: The differential diagnosis associated with the presentation includes Metabolic encephalopathy/TIA/CVA Lab Data [facility] Lab Attestation statement: I reviewed the patient's lab results. 10/22/22 17:35 10/22/22 17:35 Labs: Lab Results 10/22/22 10/22/22 10/22/22 Range/Units 17:09 17:31 17:35 WBC 3.6 L (4.8-10.8) X10*3/uL RBC 4.60 (4.20-5.50) X10*6/uL Hgb 14.8 (12.0-16.0) g/dl Hct 44.5 (37.0-47.0) % MCV 96.7 (80.0-98.0) fL MCH 32.2 (27.0-33.0) pg MCHC 33.3 (31.0-35.0) g/dl RDW 12.0 (11.0-16.0) % Plt Count 255 (160-400) X10*3/uL MPV 10.6 (9.4-12.3) fL Immature Gran % (Auto) 0.3 (0.0-0.4) % Neut % (Auto) 52.7 (45-73) % Lymph % (Auto) 35.2 (20-40) % [place] % (Auto) 9.9 (2-11) % Eos % (Auto) 1.1 (0-4) % Baso % (Auto) 0.8 (0-2) % Lymph # (Auto) 1.3 (1.2-4.9) X10*3/uL [place] # (Auto) 0.4 (0.1-1.2) X10*3/uL Eos # (Auto) 0.0 (0.0-0.4) X10*3/uL Baso # (Auto) 0.0 (0.0-0.2) X10*3/uL Abs Immat Gran (auto) 0.01 (0.00-0.03) X10*3/uL Absolute Neuts (auto) 1.9 L (2.0-8.3) x10*3/uL Absolute Nucleated RBC 0.000 (0.0-0.012) X10*3/uL Nucleated RBC % (auto) 0.0 (0.0-0.2) /100WBC PT (11.1-13.3) SEC Whole Blood PT 13.1 (11.1-13.5) sec INR (0.9-1.1) Whole Blood INR 1.1 (0.9-1.1) APTT (26.0-36.4) SEC Sodium (135-145) mmol/L Potassium (3.3-5.1) mmol/L Chloride (96-108) mmol/L Carbon Dioxide (22-29) mmol/L Anion Gap (12-20) BUN (9-16) mg/dL Creatinine (0.5-1.4) mg/dL Estim Creat Clear Calc Estimated GFR POC Glucose 129 H (60-115) mg/dL Random Glucose (60-115) mg/dL Calcium (8.4-10.2) mg/dL Magnesium (1.6-2.6) mg/dL Total Creatine Kinase (26-140) U/L Troponin I High Sens (<3.5-17.0) ng/L Urine Color Urine Appearance Urine pH (5.0-9.0) Ur Specific [place] (1.005-1.025) Urine Protein (Neg-Trace) mg/dL Urine Glucose (UA) (Negative) mg/dL Urine Ketones (Negative) mg/dL Urine Blood (Negative) Urine Nitrite (Negative) Ur Leukocyte Esterase (Negative) Urine RBC (0-2) /HPF Urine WBC (0-5) /HPF Ur Squamous Epith Cells (0-2) /HPF Urine Bacteria (None Seen) Hyaline Casts (0-2) /LPF 10/22/22 10/22/22 10/22/22 Range/Units 17:35 17:35 17:35 WBC (4.8-10.8) X10*3/uL RBC (4.20-5.50) X10*6/uL Hgb (12.0-16.0) g/dl Hct (37.0-47.0) % MCV (80.0-98.0) fL MCH (27.0-33.0) pg MCHC (31.0-35.0) g/dl RDW (11.0-16.0) % Plt Count (160-400) X10*3/uL MPV (9.4-12.3) fL Immature Gran % (Auto) (0.0-0.4) % Neut % (Auto) (45-73) % Lymph % (Auto) (20-40) % [place] % (Auto) (2-11) % Eos % (Auto) (0-4) % Baso % (Auto) (0-2) % Lymph # (Auto) (1.2-4.9) X10*3/uL [place] # (Auto) (0.1-1.2) X10*3/uL Eos # (Auto) (0.0-0.4) X10*3/uL Baso # (Auto) (0.0-0.2) X10*3/uL Abs Immat Gran (auto) (0.00-0.03) X10*3/uL Absolute Neuts (auto) (2.0-8.3) x10*3/uL Absolute Nucleated RBC (0.0-0.012) X10*3/uL Nucleated RBC % (auto) (0.0-0.2) /100WBC PT 11.4 (11.1-13.3) SEC Whole Blood PT (11.1-13.5) sec INR 0.9 (0.9-1.1) Whole Blood INR (0.9-1.1) APTT 27.8 (26.0-36.4) SEC Sodium 137 (135-145) mmol/L Potassium 4.1 (3.3-5.1) mmol/L Chloride 101 (96-108) mmol/L Carbon Dioxide 21 L (22-29) mmol/L Anion Gap 19 (12-20) BUN 16 (9-16) mg/dL Creatinine 0.67 (0.5-1.4) mg/dL Estim Creat Clear Calc 51.7 Estimated GFR > 60 POC Glucose (60-115) mg/dL Random Glucose 147 H (60-115) mg/dL Calcium 10.3 H D (8.4-10.2) mg/dL Magnesium 2.3 (1.6-2.6) mg/dL Total Creatine Kinase 21 L (26-140) U/L Troponin I High Sens < 2.7 (<3.5-17.0) ng/L Urine Color Urine Appearance Urine pH (5.0-9.0) Ur Specific [place] (1.005-1.025) Urine Protein (Neg-Trace) mg/dL Urine Glucose (UA) (Negative) mg/dL Urine Ketones (Negative) mg/dL Urine Blood (Negative) Urine Nitrite (Negative) Ur Leukocyte Esterase (Negative) Urine RBC (0-2) /HPF Urine WBC (0-5) /HPF Ur Squamous Epith Cells (0-2) /HPF Urine Bacteria (None Seen) Hyaline Casts (0-2) /LPF 10/22/22 Range/Units 19:18 WBC (4.8-10.8) X10*3/uL RBC (4.20-5.50) X10*6/uL Hgb (12.0-16.0) g/dl Hct (37.0-47.0) % MCV (80.0-98.0) fL MCH (27.0-33.0) pg MCHC (31.0-35.0) g/dl RDW (11.0-16.0) % Plt Count (160-400) X10*3/uL MPV (9.4-12.3) fL Immature Gran % (Auto) (0.0-0.4) % Neut % (Auto) (45-73) % Lymph % (Auto) (20-40) % [place] % (Auto) (2-11) % Eos % (Auto) (0-4) % Baso % (Auto) (0-2) % Lymph # (Auto) (1.2-4.9) X10*3/uL [place] # (Auto) (0.1-1.2) X10*3/uL Eos # (Auto) (0.0-0.4) X10*3/uL Baso # (Auto) (0.0-0.2) X10*3/uL Abs Immat Gran (auto) (0.00-0.03) X10*3/uL Absolute Neuts (auto) (2.0-8.3) x10*3/uL Absolute Nucleated RBC (0.0-0.012) X10*3/uL Nucleated RBC % (auto) (0.0-0.2) /100WBC PT (11.1-13.3) SEC Whole Blood PT (11.1-13.5) sec INR (0.9-1.1) Whole Blood INR (0.9-1.1) APTT (26.0-36.4) SEC Sodium (135-145) mmol/L Potassium (3.3-5.1) mmol/L Chloride (96-108) mmol/L Carbon Dioxide (22-29) mmol/L Anion Gap (12-20) BUN (9-16) mg/dL Creatinine (0.5-1.4) mg/dL Estim Creat Clear Calc Estimated GFR POC Glucose (60-115) mg/dL Random Glucose (60-115) mg/dL Calcium (8.4-10.2) mg/dL Magnesium (1.6-2.6) mg/dL Total Creatine Kinase (26-140) U/L Troponin I High Sens (<3.5-17.0) ng/L Urine Color Yellow Urine Appearance Clear Urine pH 6.0 (5.0-9.0) Ur Specific [place] 1.015 (1.005-1.025) Urine Protein Negative (Neg-Trace) mg/dL Urine Glucose (UA) Negative (Negative) mg/dL Urine Ketones 40 (Negative) mg/dL Urine Blood Negative (Negative) Urine Nitrite Negative (Negative) Ur Leukocyte Esterase Small (1+) H (Negative) Urine RBC 0-2 (0-2) /HPF Urine WBC 6-10 H (0-5) /HPF Ur Squamous Epith Cells 3-5 (0-2) /HPF Urine Bacteria 1+ (None Seen) Hyaline Casts 3-5 (0-2) /LPF Independent Interpretation I performed an independent interpretation of an: EKG Interpretation: Sinus rhythm with premature atrial complex nonspecific ST-T change PACs ventricular rate 67 beats per minute no acute ischemia External Record Review External record reviewed: Inpatient record NIH Stroke Scale Internal: Initial- Upon Arrival Level of Consciousness: Alert Level of Consciousness Questions: Answers one question correctly Level of Consciousness Commands: Performs both tasks correctly Best Gaze: Normal Visual: No visual loss Facial Palsy: Normal Motor Arm (Right): No drift Motor Arm (Left): No drift Motor Leg (Right): No drift Motor Leg (Left): No drift Limb Ataxia: Absent Sensory: Normal Best Language: Mild to moderate aphasia Dysarthia: Normal Extinction and Inattention: No abnormality Score: 2 Discharge Plan Discharge Clinical Impression: Transient cerebral ischemia, Acute UTI Patient Disposition: Home, Self-Care Instructions: Transient Ischemic Attack (ED), Urinary Tract Infection in Older Adults (ED) Additional Instructions: Continue your medications daily as prescribed You possibly have slight urinary tract infection take antibiotic as prescribed Follow-up with your PCP/neurology Prescriptions: New cefuroxime axetil 250 mg tablet 250 mg PO BID 5 Days Qty: 10 0RF No Action atorvastatin 40 mg Tablet 40 mg PO DAILY metoprolol succinate 25 mg Tablet Extended Release 24 Hr 25 mg PO DAILY fluticasone propionate [Flonase Allergy Relief] 50 mcg/actuation [place],Suspension 2 spray INTRANASAL DAILY Eliquis 5 mg Tablet 5 mg PO BID Eliquis 5 mg tablet 5 mg PO BID senna 8.6 mg capsule 8.6 mg PO DAILY Interventions: ED Discharge Assessment Last Done: 10/22/22 20:18 Discharge Date/Time: 10/22/22 20:19
[2022-10-22 17:04] VITALS: BP 98/68; PULSE 86; O2SAT 97
[2022-10-22 17:05] VITALS: BP 98/68; PULSE 86; O2SAT 97
[2022-10-22 17:15] VITALS: BP 145/67; PULSE 60; RESP 18; O2SAT 91; BMI 19.1
[2022-10-22 17:35] LABS: Prothrombin Time Whole Bld POC 13.1 sec (11.1-13.5); ~PT, ~INR - Anti Coag Clinic 1.1 (0.9-1.1)
[2022-10-22 17:36] LABS: Glucose, Whole Blood 129 mg/dL (60-115)
--- NOTE | 2022-10-22 17:37 | PC.NURSE ---
Patient arrived via ems after being at lunch and suddenly started to fall backwards, was guided to the floor and did not fall. It appeared that her left side was limp. Per ems patient was initially weaker on one side but upon arrival was able to move all extremities. Upon arrival patient able lift both arms and legs, able to follow simple commands. Per family at baseline patient is very talkative, and has some confusion but is not currently at her baseline. hand grasps strong and equal, MARIZA. Blood glucose 129, inr 1.1
[2022-10-22 17:39] LABS: MANUAL DIFF FLAG NO
--- NOTE | 2022-10-22 17:42 | PC.NURSE ---
per family has not taken any eliquis x 6 months
--- OUTSIDE RECORDS SUMMARY | 2022-10-22 17:42 | XMS_ITS | Continuity of Care Document ---
Author Name Unknown Organization [facility] [place] [address] [address]- Care Team Providers Care Mixing Machine Tender Name Role Phone Xander Vázquez MD Primary Care Physician [id number] Date(s): 05/03/21 - 07/20/[address] [address]- Attending Physician: Henrietta Marie Admitting Physician: Henrietta Marie Referring Physician: Xander Vázquez MD Allergies, Adverse Reactions, Alerts Substance Reaction Severity Status Lipitor Active Medications Fluticasone Nasal Daily, 0 Refills, Maintenance, 02/27/16 9:10:47 EST Start Date: 02/27/16 Status: Ordered Social History Social History Type Response Smoking Status Never smoker entered on: 12/22/16 Sex
--- OUTSIDE RECORDS SUMMARY | 2022-10-22 17:42 | XMS_ITS | Continuity of Care Document ---
Author Name Unknown Organization [facility] Address [address] [address]- Care Team Providers Care Video News Editor Name Role Phone Xander Vázquez MD [id number] Date(s[facility] 06/[facility] - [facility]08[facility] [id number] [address]- Attending Physician: Rene Lizama MD Admitting Physician: Rene Lizama MD Referring Physician: Xander Vázquez MD Allergies, Adverse Reactions, Alerts Substance Reaction Severity Status Lipitor Active Medications Fluticasone Nasal Daily, 0 Refills, Maintenance, 02/27/16 9:10:47 EST Start Date: 02/27/16 Status: Ordered Vital Signs Most recent to oldest [Reference Range]: 1 Height 169 cm (06/01/20 8:28 AM) Weight 57.7 kg (06/01/20 8:28 AM) Oxygen Saturation [94-100 %] 97 % (06/01/20 8:28 AM) Pulse Rate [55-90 bpm] 93 bpm *H* (06/01/20 8:28 AM) Body Mass Index [18.5-24.99] 20.2 (06/01/20 8:28 AM) Blood Pressure [90-138/55-84 mm Hg] 158/ 84mm Hg *H* (06/01/20 8:28 AM) Blood pressure sites Arm, left (06/01/20 8:28 AM) Weight Obtained Via Standing scale (06/01/20 8:28 AM) Social History Social History Type Response Smoking Status Never smoker entered on: 12/22/16 Sex
--- OUTSIDE RECORDS SUMMARY | 2022-10-22 17:42 | XMS_ITS | Continuity of Care Document ---
Author Name Unknown Organization [facility] Address [address] [place] [address]- Care Team Providers Care Digital Proofing And Platemaker Name Role Phone Xander Vázquez MD Primary Care Physician [phone] Encounter [facility] Date(s): 04/22/19 - 04/22/[address] [address]- [facility] Attending Physician: Xander Vázquez MD Allergies, Adverse Reactions, Alerts Substance Reaction Severity Status Lipitor Active Medications Fluticasone Nasal Daily, 0 Refills, Maintenance, 02/27/16 9:10:47 EST Start Date: 02/27/16 Status: Ordered simvastatin 80 mg oral tablet 1 tablet = 80 mg, By Mouth, Daily at bedtime, 0 Refills, Maintenance, 02/27/16 9:10:30 Start Date: 02/27/16 Status: Ordered Social History Social History Type Response Smoking Status Never smoker entered on: 12/22/16 Sex
--- OUTSIDE RECORDS SUMMARY | 2022-10-22 17:42 | XMS_ITS | Continuity of Care Document ---
Author Name Unknown Organization [facility] Address [address] [address]- Care Team Providers Care Business System Consultant Name Role Phone Gurpreet SOUSA, Xander Primary Care Physician Encounter [facility] Date(s): 06/01/20 - 07/01/[address] [address]- Attending Physician: Samuel Nagel Admitting Physician: AdmSamuel rodriguez Referring Physician: Admtr, Ar8 Allergies, Adverse Reactions, Alerts Substance Reaction Severity Status Lipitor Active Medications Fluticasone Nasal Daily, 0 Refills, Maintenance, 02/27/16 9:10:47 EST Start Date: 02/27/16 Status: Ordered Social History Social History Type Response Smoking Status Never smoker entered on: 12/22/16 Sex
[2022-10-22 17:45] LABS: Basophils Percent Auto 0.8 % (0-2); Eosinophils Percent Auto 1.1 % (0-4); Hematocrit 44.5 % (37.0-47.0); Hemoglobin 14.8 g/dl (12.0-16.0); Imm Gran Abs Auto 0.01 X10*3/uL (0.00-0.03); Imm Gran Pct Auto 0.3 % (0.0-0.4); Lymphocytes Absolute Auto 1.3 X10*3/uL (1.2-4.9); Lymphocytes Percent Auto 35.2 % (20-40); Mean Corpuscular HGB Conc 33.3 g/dl (31.0-35.0); Mean Corpuscular Hemoglobin 32.2 pg (27.0-33.0); Mean Corpuscular Volume 96.7 fL (80.0-98.0); Mean Platelet Volume 10.6 fL (9.4-12.3); Monocytes Absolute Auto 0.4 X10*3/uL (0.1-1.2); Monocytes Percent Auto 9.9 % (2-11); Neutrophils Absolute Auto 1.9 x10*3/uL (2.0-8.3); Neutrophils Percent Auto 52.7 % (45-73); Platelet Count 255 X10*3/uL (160-400); White Blood Count 3.6 X10*3/uL (4.8-10.8)
[2022-10-22 17:53] LABS: INTERNATIONAL NORM RATIO 0.9 (0.9-1.1); Prothrombin Time 11.4 SEC (11.1-13.3)
[2022-10-22 17:56] LABS: Partial Thromboplastin Time 27.8 SEC (26.0-36.4)
[2022-10-22 17:58] LABS: Anion Gap 19 (12-20); Blood Urea Nitrogen 16 mg/dL (9-16); Calcium 10.3 mg/dL (8.4-10.2); Carbon Dioxide 21 mmol/L (22-29); Chloride 101 mmol/L (96-108); Creatinine Clr Calc Pharmacy 51.7; Estimated Glomerular Filt Rate > 60; Glucose Random 147 mg/dL (60-115); Magnesium 2.3 mg/dL (1.6-2.6); Potassium 4.1 mmol/L (3.3-5.1); Sodium 137 mmol/L (135-145)
[2022-10-22 18:06] VITALS: BP 144/65; PULSE 77; RESP 18; O2SAT 92
[2022-10-22 18:06] LABS: Troponin-I High Sensitivity < 2.7 ng/L (<3.5-17.0)
--- NOTE | 2022-10-22 18:09 | PC.NURSE ---
Patient more alert, passed swallow eval. Able to recall where she went for lunch. Able to identify and granddaughter. MARIZA
[2022-10-22 18:51] LABS: Stroke Lab Use COMPLETE
[2022-10-22 19:38] LABS: Appearance Urine Clear; Color Urine Yellow; Glucose Urine UA Negative (Negative); Leukocyte Esterase Urine Small (1+) (Negative); Nitrite Urine Negative (Negative); Specific Gravity - Urine 1.015 (1.005-1.025); UMIC TRIGGER UACC YES; Urine Blood Negative (Negative); Urine Ketones 40 mg/dL (Negative); Urine Protein Negative (Neg-Trace)
--- NOTE | 2022-10-22 19:42 | MHC.EDTECH ---
Patient used commode with walker
[2022-10-22 19:47] LABS: Bacteria Urine 1+ (None Seen); RBC Urine 0-2 /HPF (0-2); UACC Culture Trigger YES
[2022-10-22] MEDS: Acetaminophen 325 MG TABLET 650 MG PO (19:48)
--- NOTE | 2022-10-22 20:18 | PC.NURSE ---
pt medicated per MAR.
== END 2022-10-22 20:19 | disposition home or self-care (01) ==
PROVIDERS: Emergency Provider Internal Medicine; PCP Internal Medicine
DX: G45.9 Transient cerebral ischemic attack, unspecified (principal); N39.0 Urinary tract infection, site not specified; R29.702 NIHSS score 2; R41.0 Disorientation, unspecified; R94.31 Abnormal electrocardiogram [ECG] [EKG]; Z79.899 Other long term (current) drug therapy
CPT/HCPCS: 36415; 70450; 80048; 81001; 82550; 82947; 83735; 84484; 85025; 85610; 85730; 87086; 93005; 99285

== ENCOUNTER → 2022-10-22 17:01 | Outpatient (BNV) | payer MEDICARE, OTHER, SELFPAY | PROVIDERS: Emergency Provider Internal Medicine; PCP Internal Medicine; Visit Provider Internal Medicine | DX: I49.1 Atrial premature depolarization (principal); I45.81 Long QT syndrome | CPT/HCPCS: 93010 ==

== ENCOUNTER 2022-11-24 08:49 | Emergency (ER) | payer MEDICARE, OTHER, SELFPAY ==
--- NOTE | ~2022-11-24 | CT_ITS ---
EXAMINATION: CT ABDOMEN AND PELVIS WITH CONTRAST CLINICAL INFORMATION: Fall. Abdominal trauma. COMPARISON: None available. TECHNIQUE: Multidetector volumetric images were obtained from the superior aspect of the liver through the pubic symphysis following administration 85 mL of Omnipaque 350 intravenous contrast. Sagittal and coronal reformatted images were obtained on the technologist's workstation. Oral contrast: Yes This CT examination was performed using dose optimization techniques as appropriate, variously including the following: *Automated exposure control *Adjustment of mA and/or kV according to patient size (this includes techniques or standardized protocols for targeted exams where dose is matched to indication/reason for exam; i.e. extremities or head) *Use of iterative reconstruction technique DLP: 414 mGy-cm FINDINGS: LUNG BASES: The visualized lung bases are unremarkable. LIVER, GALLBLADDER, AND BILIARY TREE: Mild fatty infiltration of the liver. 2 cm cyst in the lateral segment of the left lobe of the liver. No other focal hepatic lesion or biliary ductal dilatation is present. The gallbladder is unremarkable with no evidence of radiopaque gallstones, gallbladder wall thickening, or obvious pericholecystic inflammatory changes. PANCREAS: Unremarkable. SPLEEN: Unremarkable. ADRENAL GLANDS: Unremarkable. KIDNEYS AND URETERS: Duplicated right renal collecting system. No hydronephrosis, hydroureter, or calculi seen. No perinephric stranding. 3 cm cyst in the lower pole the right kidney. No imaging follow-up recommended. BLADDER: Not optimally distended. GASTROINTESTINAL TRACT: Diverticulosis of the colon and constipation. Abnormal fluid and air collection adjacent to the head of the pancreas and medial to the second portion of the duodenum question representing a duodenal diverticulum. Clinical correlation recommended. This could be further evaluated with upper GI clinically indicated. Small and large bowel is otherwise normal. The appendix is normal. The stomach is normal. ABDOMINAL WALL: No significant hernia is appreciated. LYMPH NODES: Normal. VASCULAR: Severe atherosclerotic disease. No aneurysm. PELVIC VISCERA: Small calcifications in the uterus probably representing fibroids. OSSEOUS STRUCTURES: Degenerative changes of the spine and hip joints CT/CT abdomen pelvis w IV con IMPRESSION: No acute posttraumatic findings. Air and fluid adjacent to the head of the pancreas and medial second portion of the duodenum. This may represent a duodenal diverticulum. If there is concern for injury to this region or ulcer disease, this could be confirmed with upper GI. Diverticulosis and constipation. Fleischner guidelines were followed.
--- NOTE | ~2022-11-24 | CT_ITS ---
EXAMINATION: CT CHEST WITH CONTRAST CLINICAL INFORMATION: Fall. Chest trauma. COMPARISON: Previous chest x-ray February 2020 TECHNIQUE: Multidetector volumetric CT imaging of the chest was obtained after the administration of 85 mL of Omnipaque 350 intravenous contrast without immediate adverse reactions. Axial MIP volume rendering provided. Sagittal and coronal reformatted images were obtained. This CT examination was performed using dose optimization techniques as appropriate, variously including the following: *Automated exposure control *Adjustment of mA and/or kV according to patient size (this includes techniques or standardized protocols for targeted exams where dose is matched to indication/reason for exam; i.e. extremities or head) *Use of iterative reconstruction technique DLP: 190 mGy-cm FINDINGS: SALES AND SERVICE ASSOCIATE: Unremarkable LUNGS: Biapical pleural and parenchymal scarring. The lungs are otherwise clear. MEDIASTINUM: Small right thyroid nodule measuring less than 1 cm. No imaging follow-up recommended. Normal caliber thoracic aorta. Slightly enlarged heart. No pericardial effusion. Mild coronary artery calcification. No enlarged hilar or mediastinal lymph nodes. PLEURA: There is no pleural effusion. No pleural mass or thickening. No pneumothorax. AXILLA: No lymphadenopathy. UPPER ABDOMEN: Unremarkable OSSEOUS STRUCTURES: Evaluation of the ribs is limited due to respiratory motion, particularly on the right.. No definite rib fracture is seen. There are degenerative changes of the spine. CT/CT chest w IV con IMPRESSION: No evidence for acute disease in the chest. Fleischner guidelines were followed.
--- NOTE | ~2022-11-24 | CT_ITS ---
EXAMINATION: CT HEAD WITHOUT CONTRAST CLINICAL INFORMATION: Fall head trauma COMPARISON: CT head from 10/22/2022 TECHNIQUE: Contiguous axial imaging was performed from the skull base to vertex without intravenous administration of contrast. This CT examination was performed using dose optimization techniques as appropriate, variously including the following: *Automated exposure control *Adjustment of mA and/or kV according to patient size (this includes techniques or standardized protocols for targeted exams where dose is matched to indication/reason for exam; i.e. extremities or head) *Use of iterative reconstruction technique DLP: 778 mGy-cm FINDINGS: There is no evidence of acute intracranial hemorrhage or territorial infarction. Chronic white matter small vessel ischemic changes. Chronic lacunar infarct involving the left yuriy. Cerebral atrophy with commensurate ventricular changes. No abnormal mass effect or midline shift is seen. Moreau to white matter differentiation is well preserved. No extra-axial fluid collections are identified. The ventricles are normal in size. There is no abnormal attenuation within the brain parenchyma. Questionable minimally displaced left nasal bone fracture, correlation with point tenderness. The mastoid air cells and visualized portions of the paranasal sinuses are well aerated. Vertebrobasilar atherosclerotic calcifications. CT/CT cervical spine wo IV con IMPRESSION: 1. No acute intracranial pathology. 2. Chronic white matter small vessel ischemic changes. 3. Questionable minimally displaced left nasal bone fracture, correlation with point tenderness. EXAMINATION: Noncontrast CT scan of the cervical spine. INDICATION: Fall neck pain COMPARISON: None. TECHNIQUE: Helical, multidetector axial images were obtained from the occiput to the upper thorax. Coronal and sagittal reformats of the cervical spine were provided for interpretation. DLP: 778 mGy-cm FINDINGS: No acute fractures or dislocations of the cervical spine are seen. Multilevel degenerative changes. Anatomic alignment and positioning of the vertebral bodies and posterior elements is noted. The atlantoaxial joint and craniovertebral articulations are normal without evidence of subluxation. There is no prevertebral soft tissue swelling. Biapical pleural-parenchymal lung scarring. IMPRESSION: 1. No acute visible fracture or dislocation. 2. Multilevel degenerative changes.
--- NOTE | 2022-11-24 08:53 | ECG_ITS ---
Test Reason : FALL Blood Pressure : / mmHG Vent. Rate : 086 BPM Atrial Rate : 086 BPM P-R Int : 110 ms QRS Dur : 074 ms QT Int : 406 ms P-R-T Axes : 028 -32 045 degrees QTc Int : 485 ms Poor data quality, interpretation may be adversely affected Sinus rhythm with short OR with Premature supraventricular complexes Left axis deviation Nonspecific ST and T wave abnormality Abnormal ECG When compared with ECG of 22-OCT-2022 17:19, OR interval has decreased Nonspecific T wave abnormality now evident in Inferior leads Referred By: Yaa Davis Electronically Signed By:TUAN WEINER
[2022-11-24 09:02] VITALS: BP 142/66; PULSE 94; O2SAT 98; BMI 18.8
--- NOTE | 2022-11-24 09:20 | PC.NURSE ---
unwitnessed fall, unknown hs/loc. found on floor by family, last seen around 8 pm last night. hx of recent stroke, on Eliquis. hx dementia. c/o r arm pain. daughter at bedside and is primary source of information.
--- NOTE | 2022-11-24 09:26 | ED.GENADULT ---
HPI - General Adult General Chief complaint: Fall Stated complaint: FALL + BLOOD THINNERS CHIN LAC Time Seen by Provider: 11/24/22 08:53 Source: EMS Mode of arrival: EMS Limitations: other (dementia ) History of Present Illness HPI narrative: This is an 82-year-old female history of alcohol abuse, hypertension, hyperlipidemia, CVA, atrial fibrillation on Eliquis, dementia, TIAs presenting to the emergency department status post being found on the ground earlier this morning by family, unclear when patient fell, she was last seen last night at 20:00, patient was on the ground, covered in feces. Patient has history of dimension is unable to provide any history or review of systems. Add precaution EMS collared patient. Unclear if head strike, loss of consciousness. Related Data Home Medications Medication Instructions Recorded Confirmed apixaban 5 mg tablet (Eliquis) 5 mg PO BID 02/21/20 03/05/20 atorvastatin 40 mg tablet 40 mg PO DAILY 02/21/20 03/05/20 fluticasone propionate 50 2 spray intranasal DAILY 02/21/20 03/05/20 mcg/actuation nasal spray,suspension (Flonase Allergy Relief) metoprolol succinate 25 mg 25 mg PO DAILY 02/21/20 03/05/20 tablet,extended release 24 hr apixaban 5 mg tablet (Eliquis) 5 mg PO BID 03/05/20 03/05/20 sennosides 8.6 mg capsule (senna) 8.6 mg PO DAILY 03/05/20 03/05/20 Previous Rx's Medication Instructions Recorded cefuroxime axetil 250 mg tablet 250 mg PO BID 5 days #10 tabs 10/22/22 Allergies Allergy/AdvReac Type Severity Reaction Status Date / Time bee pollen [Bee Stings] Allergy Intermediate HIVES Verified 11/24/22 09:19 Review of Systems Review of Systems: Yes Unobtainable due to mental status PMFSH Past Medical History Attestation statement: The following information was validated with the patient. Source: old records reviewed and nursing notes reviewed Medical History History of multiple strokes Social History Social History Alcohol intake: former Use of substances other than those prescribed or required for medical reasons: No Advance Directives: Yes Advance Directives on File: Yes Advance Directives Date on File: 02/27/20 service: No Current occupational status: retired Current occupation: right handed Physical Exam ED Vital Signs: Vital Signs - 24 hr 11/24/22 10:18 Temperature 99.0 F Pulse Rate 86 Respiratory Rate 16 Blood Pressure 156/84 H Oxygen Delivery Method Room Air Oxygen Flow Rate 97 BMI result Body Mass Index 18.8 vss Appearance: Awake. Moving all extremities. Not oriented to person, place, time or situation? No acute distress.? Patient covered and Head: Normocephalic, atraumatic, no step-offs or deformities Eyes: Pupils equal, round and reactive to light.? Neck: Normal inspection.? Normal midline tenderness. Patient in cervical collar. CVS: Normal heart rate and rhythm.? Pulses normal.? Respiratory: No respiratory distress.? Breath sounds normal.? Abdomen: Soft and nontender.? Skin: Skin warm and dry.? Normal skin color.? Normal skin turgor.? Extremities: No lower extremity edema.? No calf ttp. Global weakness Neuro: Awake. Moving all extremities. Not oriented to person, place, time or situation. Course Reevaluation(s) Reevaluation #1: Delay in obtaining CT chest abd and pelvis due to patient being covered in feces patient got cleaned and needed and IV prior to imaging which took time. Patient's CBC appears to be within normal limits. No acute findings. Chemistry with low sodium 128, will given IV fluids at this time. Bilirubin 1.7 however no abdominal tenderness , despite this CT abdomen pending. Troponin negative, normal BNP. Coags within normal limits. UA with trace leukocyte esterases, no bacteria, unlikely UTI. Urine toxicology negative for ethanol. COVID negative. CT cervical spine with no acute visible fractures or dislocations. Multilevel degenerative changes. CT head with no acute intracranial pathology. Chronic white matter small-vessel ischemic changes. Question minimally displaced left nares fracture. This is likely basic mechanism of injury. CT abdomen pelvis with no acute posttraumatic findings and fluid adjacent to the head of the pancreas and medial 2nd portion of the duodenum this may represent duodenal diverticulum ( will give GI follow up). CT chest with no evidence for acute disease in the chest. Time: 12:07 Reevaluation #2: A repeat CMP was ordered as well as repeat troponin to ensure that this was not cardiac in origin, also wanted to ensure patient's sodium normalized. Patient mentating much better than she was initially. Now family is concerned that patient is having right shoulder pain, I was not aware of this before, patient was moving her extremities and was unable to vocalize she was having pain. I offered to do an x-ray however family members upset due to wait time, they are demanding that patient go home with them, they said that they will follow-up with PCP. I also explained to them it is deemed wrist to leave without a 2nd troponin and repeat sodium as there are abnormalities tell electrolytes and I cannot sure this is not cardiac in origin, family member states that they do not care and they are aware that patient can . They would like to sign patient out against medical advice. Patient is alert to person at this time. Time: 15:20 Reevaluation #3: I called the nursing open pit quarry supervisor Eve to speak to patient and family, family male democrat and daughter left the room w/ patient and did not sign paper work prior to us going back in to speak to them. They verbalized understanding of AMA when I was in the room with Tien as , worsening condition being possibilities/ complications. They understood a second trop was needed, repeat labs and xray of RUE to rule out fx or dislocation, and if these were abnormal hospital admission could be needed. Despite this they decided to leave with patient. Additional Reevaluation(s): 9622 I did call emergency contact on file zulma Alas [phone] no answer x2 called to discuss critical potassium level of 2.9. No answer, due to abnormal results did not leave a voicemail. Will see if charge nurse can call again in a little while. Medications Administered Discontinued Medications Generic Name Dose Route Start Last Admin Trade Name Freq PRN Reason Stop Dose Admin Sodium Chloride 1,000 mls @ 999 mls/hr 11/24/22 12:15 11/24/22 13:15 Ns IV 11/24/22 13:15 Infused .Q1H1M ADRIANA Infusion Sodium Chloride 1,000 mls @ 999 mls/hr 11/24/22 12:15 11/24/22 14:36 Ns IV 11/24/22 13:15 Infused .Q1H1M ADRIANA Infusion Iohexol 85 ml 11/24/22 11:24 11/24/22 11:25 Iohexol 350 Mg/Ml 100 Ml Infus..Btl IV 11/24/22 11:25 85 ml ONCE ONE Administration Medical Decision Making Medical Decision Making [facility] Narrative: 0853 82-year-old female presents status post unwitnessed fall, poor historian secondary to dementia. Unclear history. On blood thinners. Initially evaluated patient in hallway & ambulance stretcher and then in the CT room for privacy. Physical exam patient appears unkempt, covered in feces. Awake, moving all extremities, not following commands, not oriented to person, place time or situation. Will rule out traumatic injury to head, neck, chest, abdomen or pelvis due to patient being on blood thinners. Unlikely pneumothorax, flail chest. No signs of acute respiratory distress. Will rule out electrolyte abnormalities, UTI, rhabdomyolysis. Will also rule out dysrhythmia and ACS. Unlikely PE as patient anticoagulated. Plan at this time labs, imaging, urine. Differential Diagnosis Differential Diagnoses: The differential diagnosis associated with the presentation includes Will rule out traumatic injury to head, neck, chest, abdomen or pelvis due to patient being on blood thinners. Unlikely pneumothorax, flail chest. No signs of acute respiratory distress. Will rule out electrolyte abnormalities, UTI, rhabdomyolysis. Will also rule out dysrhythmia and ACS. Unlikely PE as patient anticoagulated. Admission/Observation Consideration of admission/observation: Escalation of care including admission/observation considered Consult Healthcare Provider Management of the patient was discussed with: Primary Care Provider Lab Data [facility] Lab Attestation statement: I reviewed the patient's lab results. 11/24/22 10:01 11/24/22 10:01 Labs: Lab Results 11/24/22 11/24/22 11/24/22 Range/Units 10:01 10:01 10:01 WBC 9.1 (4.8-10.8) X10*3/uL RBC 4.46 (4.20-5.50) X10*6/uL Hgb 14.5 (12.0-16.0) g/dl Hct 41.2 (37.0-47.0) % MCV 92.4 (80.0-98.0) fL MCH 32.5 (27.0-33.0) pg MCHC 35.2 H (31.0-35.0) g/dl RDW 11.9 (11.0-16.0) % Plt Count 257 (160-400) X10*3/uL MPV 9.9 (9.4-12.3) fL Immature Gran % (Auto) 0.2 (0.0-0.4) % Neut % (Auto) 89.3 H (45-73) % Lymph % (Auto) 4.7 L (20-40) % Nolan % (Auto) 5.5 (2-11) % Eos % (Auto) 0.2 (0-4) % Baso % (Auto) 0.1 (0-2) % Lymph # (Auto) 0.4 L (1.2-4.9) X10*3/uL Nolan # (Auto) 0.5 (0.1-1.2) X10*3/uL Eos # (Auto) 0.0 (0.0-0.4) X10*3/uL Baso # (Auto) 0.0 (0.0-0.2) X10*3/uL Abs Immat Gran (auto) 0.02 (0.00-0.03) X10*3/uL Absolute Neuts (auto) 8.1 (2.0-8.3) x10*3/uL Absolute Nucleated RBC 0.000 (0.0-0.012) X10*3/uL Nucleated RBC % (auto) 0.0 (0.0-0.2) /100WBC PT 11.5 (11.1-13.3) SEC INR 0.9 (0.9-1.1) Sodium 128 L (135-145) mmol/L Potassium 3.7 (3.3-5.1) mmol/L Chloride 93 L (96-108) mmol/L Carbon Dioxide 22 (22-29) mmol/L Anion Gap 17 (12-20) BUN 10 (9-16) mg/dL Creatinine 0.55 (0.5-1.4) mg/dL Estim Creat Clear Calc 70.0 Estimated GFR > 60 Random Glucose 137 H (60-115) mg/dL Calcium 9.8 (8.4-10.2) mg/dL Magnesium 2.2 (1.6-2.6) mg/dL Total Bilirubin 1.7 H (0.0-1.0) mg/dL AST 32 H (5-31) U/L ALT 23 (0-31) U/L Alkaline Phosphatase 70 (39-117) U/L Total Creatine Kinase 164 H (26-140) U/L Troponin I High Sens (<3.5-17.0) ng/L B-Natriuretic Peptide (<100) pg/mL Total Protein 7.8 (6.5-8.0) g/dL Albumin 4.6 (3.5-5.0) g/dL Urine Color Urine Appearance Urine pH (5.0-9.0) Ur Specific Orient (1.005-1.025) Urine Protein (Neg-Trace) mg/dL Urine Glucose (UA) (Negative) mg/dL Urine Ketones (Negative) mg/dL Urine Blood (Negative) Urine Nitrite (Negative) Ur Leukocyte Esterase (Negative) Urine RBC (0-2) /HPF Urine WBC (0-5) /HPF Ur Squamous Epith Cells (0-2) /HPF Urine Bacteria (None Seen) Hyaline Casts (0-2) /LPF Ethyl Alcohol mg/dL COVID-19 (STEVE) (Negative) COVID-19 Clin Com 11/24/22 11/24/22 11/24/22 Range/Units 10:01 10:01 10:01 WBC (4.8-10.8) X10*3/uL RBC (4.20-5.50) X10*6/uL Hgb (12.0-16.0) g/dl Hct (37.0-47.0) % MCV (80.0-98.0) fL MCH (27.0-33.0) pg MCHC (31.0-35.0) g/dl RDW (11.0-16.0) % Plt Count (160-400) X10*3/uL MPV (9.4-12.3) fL Immature Gran % (Auto) (0.0-0.4) % Neut % (Auto) (45-73) % Lymph % (Auto) (20-40) % Nolan % (Auto) (2-11) % Eos % (Auto) (0-4) % Baso % (Auto) (0-2) % Lymph # (Auto) (1.2-4.9) X10*3/uL Nolan # (Auto) (0.1-1.2) X10*3/uL Eos # (Auto) (0.0-0.4) X10*3/uL Baso # (Auto) (0.0-0.2) X10*3/uL Abs Immat Gran (auto) (0.00-0.03) X10*3/uL Absolute Neuts (auto) (2.0-8.3) x10*3/uL Absolute Nucleated RBC (0.0-0.012) X10*3/uL Nucleated RBC % (auto) (0.0-0.2) /100WBC PT (11.1-13.3) SEC INR (0.9-1.1) Sodium (135-145) mmol/L Potassium (3.3-5.1) mmol/L Chloride (96-108) mmol/L Carbon Dioxide (22-29) mmol/L Anion Gap (12-20) BUN (9-16) mg/dL Creatinine (0.5-1.4) mg/dL Estim Creat Clear Calc Estimated GFR Random Glucose (60-115) mg/dL Calcium (8.4-10.2) mg/dL Magnesium (1.6-2.6) mg/dL Total Bilirubin (0.0-1.0) mg/dL AST (5-31) U/L ALT (0-31) U/L Alkaline Phosphatase (39-117) U/L Total Creatine Kinase (26-140) U/L Troponin I High Sens < 2.7 (<3.5-17.0) ng/L B-Natriuretic Peptide 38 (<100) pg/mL Total Protein (6.5-8.0) g/dL Albumin (3.5-5.0) g/dL Urine Color Urine Appearance Urine pH (5.0-9.0) Ur Specific Orient (1.005-1.025) Urine Protein (Neg-Trace) mg/dL Urine Glucose (UA) (Negative) mg/dL Urine Ketones (Negative) mg/dL Urine Blood (Negative) Urine Nitrite (Negative) Ur Leukocyte Esterase (Negative) Urine RBC (0-2) /HPF Urine WBC (0-5) /HPF Ur Squamous Epith Cells (0-2) /HPF Urine Bacteria (None Seen) Hyaline Casts (0-2) /LPF Ethyl Alcohol mg/dL COVID-19 (STEVE) Negative (Negative) COVID-19 Clin Com See Note 11/24/22 11/24/22 11/24/22 Range/Units 10:01 10:27 14:49 WBC (4.8-10.8) X10*3/uL RBC (4.20-5.50) X10*6/uL Hgb (12.0-16.0) g/dl Hct (37.0-47.0) % MCV (80.0-98.0) fL MCH (27.0-33.0) pg MCHC (31.0-35.0) g/dl RDW (11.0-16.0) % Plt Count (160-400) X10*3/uL MPV (9.4-12.3) fL Immature Gran % (Auto) (0.0-0.4) % Neut % (Auto) (45-73) % Lymph % (Auto) (20-40) % Nolan % (Auto) (2-11) % Eos % (Auto) (0-4) % Baso % (Auto) (0-2) % Lymph # (Auto) (1.2-4.9) X10*3/uL Nolan # (Auto) (0.1-1.2) X10*3/uL Eos # (Auto) (0.0-0.4) X10*3/uL Baso # (Auto) (0.0-0.2) X10*3/uL Abs Immat Gran (auto) (0.00-0.03) X10*3/uL Absolute Neuts (auto) (2.0-8.3) x10*3/uL Absolute Nucleated RBC (0.0-0.012) X10*3/uL Nucleated RBC % (auto) (0.0-0.2) /100WBC PT (11.1-13.3) SEC INR (0.9-1.1) Sodium 134 L (135-145) mmol/L Potassium 2.9 L D (3.3-5.1) mmol/L Chloride 105 (96-108) mmol/L Carbon Dioxide 22 (22-29) mmol/L Anion Gap 10 L (12-20) BUN 7 L (9-16) mg/dL Creatinine 0.53 (0.5-1.4) mg/dL Estim Creat Clear Calc 72.7 Estimated GFR > 60 Random Glucose 109 (60-115) mg/dL Calcium 8.9 D (8.4-10.2) mg/dL Magnesium (1.6-2.6) mg/dL Total Bilirubin 1.4 H (0.0-1.0) mg/dL AST 25 (5-31) U/L ALT 20 (0-31) U/L Alkaline Phosphatase 55 (39-117) U/L Total Creatine Kinase (26-140) U/L Troponin I High Sens (<3.5-17.0) ng/L B-Natriuretic Peptide (<100) pg/mL Total Protein 6.6 (6.5-8.0) g/dL Albumin 4.1 (3.5-5.0) g/dL Urine Color Yellow Urine Appearance Clear Urine pH 7.0 (5.0-9.0) Ur Specific Orient 1.020 (1.005-1.025) Urine Protein Trace (Neg-Trace) mg/dL Urine Glucose (UA) >=1000 H (Negative) mg/dL Urine Ketones 40 (Negative) mg/dL Urine Blood Negative (Negative) Urine Nitrite Negative (Negative) Ur Leukocyte Esterase Trace H (Negative) Urine RBC 0-2 (0-2) /HPF Urine WBC 0-5 (0-5) /HPF Ur Squamous Epith Cells 0-2 (0-2) /HPF Urine Bacteria None Seen (None Seen) Hyaline Casts 0-2 (0-2) /LPF Ethyl Alcohol < 10 mg/dL COVID-19 (STVEE) (Negative) COVID-19 Clin Com Independent Interpretation I performed an independent interpretation of an: CT Scan (CT/CT chest w IV con IMPRESSION: No evidence for acute disease in the chest. ) Radiology Impression Discussion of test interpretation with radiology: I have reviewed the radiologist's reading. Core Measures AMI core measures followed: Yes Measure exclusions: not indicated Critical Care Time Critical Care Time Critical Care Time: Yes Total Critical Care Time: 35 Attestation: I attest to this time spent taking care of the patient, obtaining history, physical, reviewing labs, imaging, speaking to my attending Discharge Plan Discharge Clinical Impression: Fall, Altered mental status, Acute hyponatremia, Pain in right arm, Left against medical advice Patient Disposition: Left Against Medical Advice Instructions: Hyponatremia (ED), Fall Prevention for Older Adults (ED), Altered Mental Status (ED), Fall Prevention (ED) Additional Instructions: Take your medications as prescribed. If you were prescribed antibiotics today, it is important that you take your medication to their entirety, do not skip any doses, do not finish them early. Follow-up with your primary care provider this week. Return to the emergency department with new or worsening symptoms. Such as fevers, chills, chest pain, shortness of breath, nausea, vomiting, dizziness, headache, vision changes, lethargy In case of emergency call 911 At show no infection or anemia. Initial sodium was low however IV fluids help improve this. Please have sodium rechecked with PCP within the next 2-3 days. Your cardiac enzymes were negative. Your EKG looked good. Your urine showed no infection. CT cervical spine & head/brain IMPRESSION: 1.? No acute visible fracture or dislocation. 2.? Multilevel degenerative changes. 1.? No acute intracranial pathology. 2.? Chronic white matter small vessel ischemic changes. 3.? Questionable minimally displaced left nasal bone fracture, correlation with point tenderness. CT/CT abdomen pelvis w IV con IMPRESSION: No acute posttraumatic findings. Air and fluid adjacent to the head of the pancreas and medial second portion of the duodenum. This may represent a duodenal diverticulum. If there is concern for injury to this region or ulcer disease, this could be confirmed with upper GI. Diverticulosis and constipation. CT/CT chest w IV con IMPRESSION: No evidence for acute disease in the chest.? ? Prescriptions: No Action atorvastatin 40 mg Tablet 40 mg PO DAILY metoprolol succinate 25 mg Tablet Extended Release 24 Hr 25 mg PO DAILY fluticasone propionate [Flonase Allergy Relief] 50 mcg/actuation Draper,Suspension 2 spray INTRANASAL DAILY Eliquis 5 mg Tablet 5 mg PO BID cefuroxime axetil 250 mg tablet 250 mg PO BID 5 Days Qty: 10 0RF Eliquis 5 mg tablet 5 mg PO BID senna 8.6 mg capsule 8.6 mg PO DAILY Referrals: [facility] [place] [facility] [Provider Group] - 2 days Physician,Unknown J [Primary Care Provider] - 2 days Stand Alone Forms: Against Medical Advice
[2022-11-24 10:11] LABS: MANUAL DIFF FLAG NO
[2022-11-24 10:12] LABS: Basophils Percent Auto 0.1 % (0-2); Eosinophils Percent Auto 0.2 % (0-4); Hematocrit 41.2 % (37.0-47.0); Hemoglobin 14.5 g/dl (12.0-16.0); Imm Gran Abs Auto 0.02 X10*3/uL (0.00-0.03); Imm Gran Pct Auto 0.2 % (0.0-0.4); Lymphocytes Absolute Auto 0.4 X10*3/uL (1.2-4.9); Lymphocytes Percent Auto 4.7 % (20-40); Mean Corpuscular HGB Conc 35.2 g/dl (31.0-35.0); Mean Corpuscular Hemoglobin 32.5 pg (27.0-33.0); Mean Corpuscular Volume 92.4 fL (80.0-98.0); Mean Platelet Volume 9.9 fL (9.4-12.3); Monocytes Absolute Auto 0.5 X10*3/uL (0.1-1.2); Monocytes Percent Auto 5.5 % (2-11); Neutrophils Absolute Auto 8.1 x10*3/uL (2.0-8.3); Neutrophils Percent Auto 89.3 % (45-73); Platelet Count 257 X10*3/uL (160-400); Red Blood Count 4.46 X10*6/uL (4.20-5.50); Red Cell Distribution Width 11.9 % (11.0-16.0); White Blood Count 9.1 X10*3/uL (4.8-10.8)
[2022-11-24 10:18] VITALS: BP 156/84; PULSE 86; RESP 16; TEMP 37.2
[2022-11-24 10:18] LABS: INTERNATIONAL NORM RATIO 0.9 (0.9-1.1); Prothrombin Time 11.5 SEC (11.1-13.3)
[2022-11-24 10:29] LABS: COVID-19 Test Negative (Negative); IDNOW Serial# 6674DD1D
[2022-11-24 10:34] LABS: B Type Natriuretic Peptide 38 pg/mL (<100)
[2022-11-24 10:35] LABS: Appearance Urine Clear; Color Urine Yellow; Glucose Urine UA >=1000 mg/dL (Negative); Leukocyte Esterase Urine Trace (Negative); Nitrite Urine Negative (Negative); UMIC TRIGGER UACC YES; Urine Blood Negative (Negative); Urine Ketones 40 mg/dL (Negative); Urine Protein Trace mg/dL (Neg-Trace)
[2022-11-24 10:48] LABS: Alanine Aminotransferase 23 U/L (0-31); Albumin Level 4.6 g/dL (3.5-5.0); Alkaline Phosphatase 70 U/L (39-117); Anion Gap 17 (12-20); Aspartate Amino Transferase 32 U/L (5-31); Bilirubin Total 1.7 mg/dL (0.0-1.0); Blood Urea Nitrogen 10 mg/dL (9-16); Calcium 9.8 mg/dL (8.4-10.2); Carbon Dioxide 22 mmol/L (22-29); Chloride 93 mmol/L (96-108); Estimated Glomerular Filt Rate > 60; Ethanol < 10 mg/dL; Glucose Random 137 mg/dL (60-115); Magnesium 2.2 mg/dL (1.6-2.6); Potassium 3.7 mmol/L (3.3-5.1); Sodium 128 mmol/L (135-145); Total Protein 7.8 g/dL (6.5-8.0); Troponin-I High Sensitivity < 2.7 ng/L (<3.5-17.0)
[2022-11-24 10:50] LABS: Bacteria Urine None Seen (None Seen); Hyaline Casts Urine 0-2 /LPF (0-2); RBC Urine 0-2 /HPF (0-2); Squamous Epithelial Cell Urine 0-2 /HPF (0-2); WBC Urine 0-5 /HPF (0-5)
--- NOTE | 2022-11-24 11:01 | PC.NURSE ---
20g iv inserted L forearm, labs drawn, urine collected. pt resting quietly daughter at her bedside. pt covered in dry blood/urine/feces. pt cleaned and complete bed change done.
[2022-11-24] MEDS: iohexoL 350 MG/ML 100 ML INFUS..BTL 85 ML IV (11:25)
[2022-11-24] MEDS: 0.9 % Sodium Chloride 1,000 ML 999 ML IV ×2 (12:22→13:07)
[2022-11-24 15:22] LABS: Alanine Aminotransferase 20 U/L (0-31); Albumin Level 4.1 g/dL (3.5-5.0); Alkaline Phosphatase 55 U/L (39-117); Anion Gap 10 (12-20); Aspartate Amino Transferase 25 U/L (5-31); Bilirubin Total 1.4 mg/dL (0.0-1.0); Blood Urea Nitrogen 7 mg/dL (9-16); Calcium 8.9 mg/dL (8.4-10.2); Carbon Dioxide 22 mmol/L (22-29); Chloride 105 mmol/L (96-108); Creatinine Clr Calc Pharmacy 72.7; Estimated Glomerular Filt Rate > 60; Glucose Random 109 mg/dL (60-115); Potassium 2.9 mmol/L (3.3-5.1); Sodium 134 mmol/L (135-145); Total Protein 6.6 g/dL (6.5-8.0)
--- NOTE | 2022-11-24 15:35 | PC.NURSE ---
This customs entry writer called to pt's room by unknown male. The male asked for the IV to be taken out because the pt has been here since 0800 and nothing has been done. He stated that she can be doing this at home under our care . it's not doing her any good just laying here . we are taking her home . This customs entry writer removed the iv and told the male that the provider will be in to speak with him. DENA Young with this RN present went to the pt's room to speak with the male. The male stated we want to take her home . Hannah advised him of the risks of leaving without medical clearance. The male stated I'm ok with that I will fight it in court . Hannah and this RN left the room to get the Nursing Utility Spray Operator. On arrival back to the room the pt was gone, the room was empty. Charge Nurse was made aware of the events.
[2022-11-24 15:59] LABS: Troponin-I High Sensitivity < 2.7 ng/L (<3.5-17.0)
== END 2022-11-24 16:11 | disposition left against medical advice (07) ==
PROVIDERS: Physician Assistant; Emergency Provider Emergency Medicine
DX: S49.91XA Unspecified injury of right shoulder and upper arm, initial encounter (principal); R41.82 Altered mental status, unspecified; E87.1 Hypo-osmolality and hyponatremia; M79.601 Pain in right arm; R51.9 Headache, unspecified; M54.2 Cervicalgia; I48.91 Unspecified atrial fibrillation; R10.30 Lower abdominal pain, unspecified; R94.31 Abnormal electrocardiogram [ECG] [EKG]; W18.30XA Fall on same level, unspecified, initial encounter; Y93.9 Activity, unspecified; Y92.9 Unspecified place or not applicable; Y99.9 Unspecified external cause status; Z20.822 Contact with and (suspected) exposure to COVID-19; Z20.828 Contact with and (suspected) exposure to other viral communicable diseases; Z79.01 Long term (current) use of anticoagulants; Z79.899 Other long term (current) drug therapy
CPT/HCPCS: 36415; 70450; 71260; 72125; 74177; 80053; 80307; 81001; 82550; 83735; 83880; 84484; 85025; 85610; 87635; 93005; 96360; 96361; 99284; 99285; Q9967